=== PATIENT | female | born 1990 | race Caucasian/White ===

== ENCOUNTER → 2020-02-06 | Outpatient (CLI) | payer OTHER, SELFPAY ==
[2020-02-04 13:27] VITALS: BMI 19.3
--- NOTE | 2020-02-06 11:15 | US_ITS ---
STUDY: ULTRASOUND OF THE FEMALE PELVIS - COMPLETE REASON FOR EXAM: Female, 29 years old. OVARIAN CYST LMP: August 12, 2019. TECHNIQUE: Transabdominal and Transvaginal TECHNICAL QUALITY: Adequate. COMPARISON: None. FINDINGS: The uterus is anteverted and is in a midline position. The uterus measures 6 cm x 3.4 cm x 2.1 cm. Normal uterine cervix. The endometrium measures 2.5 mm in thickness, and is . There is no demonstrated endometrial mass. There is no demonstrated myometrial mass. I.U.D. - The patient does not have an I.U.D. The right ovary is visualized. The right ovary measures 2.5 cm x 2.4 cm x 2.2 cm. A dominant follicle is seen within the ovary measuring 1.5 cm x 1.8 cm x 1.5 cm. There is no visualized right adnexal mass or complex lesion. There is normal arterial and normal venous vascularity. The left ovary is visualized. The left ovary measures 2.2 cm x 1.5 cm x 1.8 cm. A dominant follicle is seen measuring 1.2 cm x 1.1 cm x 0.8 cm. There is no visualized left adnexal mass or complex lesion. There is normal arterial and normal venous vascularity. There is minimal fluid in the cul-de-sac. US/Pelvic (Non ) IMPRESSION: Dominant follicles are seen in both ovaries. Electronically Signed: Ludwig Bryson, at 13:02 EDT , Service support ,
--- NOTE | 2020-02-06 11:15 | US_ITS ---
STUDY: ULTRASOUND OF THE FEMALE PELVIS - COMPLETE REASON FOR EXAM: Female, 29 years old. OVARIAN CYST LMP: August 12, 2019. TECHNIQUE: Transabdominal and Transvaginal TECHNICAL QUALITY: Adequate. COMPARISON: None. FINDINGS: The uterus is anteverted and is in a midline position. The uterus measures 6 cm x 3.4 cm x 2.1 cm. Normal uterine cervix. The endometrium measures 2.5 mm in thickness, and is . There is no demonstrated endometrial mass. There is no demonstrated myometrial mass. I.U.D. - The patient does not have an I.U.D. The right ovary is visualized. The right ovary measures 2.5 cm x 2.4 cm x 2.2 cm. A dominant follicle is seen within the ovary measuring 1.5 cm x 1.8 cm x 1.5 cm. There is no visualized right adnexal mass or complex lesion. There is normal arterial and normal venous vascularity. The left ovary is visualized. The left ovary measures 2.2 cm x 1.5 cm x 1.8 cm. A dominant follicle is seen measuring 1.2 cm x 1.1 cm x 0.8 cm. There is no visualized left adnexal mass or complex lesion. There is normal arterial and normal venous vascularity. There is minimal fluid in the cul-de-sac. US/Transvaginal Non- IMPRESSION: Dominant follicles are seen in both ovaries. Electronically Signed: Ludwig Bryson, at 13:02 EDT , Service support ,
== END | disposition home or self-care (01) ==
LOC: US 11:15
PROVIDERS: Referring Provider Nurse Practitioner Women's Health; Visit Provider Nurse Practitioner Women's Health
DX: Z87.42 Personal history of other diseases of the female genital tract (principal)
CPT/HCPCS: 76830; 76856; 93976

== ENCOUNTER 2020-03-24 08:45 | Day surgery (SDC) | payer OTHER, SELFPAY ==
[2020-02-21 09:30] VITALS: BMI 19.3
[2020-03-12 11:07] VITALS: BMI 19.3
--- NOTE | 2020-03-24 06:34 | HP.PCM_ITS ---
- Problem List (1) Chronic pelvic pain in female Status: Chronic Comment: failed medical management. plan d and c hysteroscopy cystoscopy diagnostic laparoscopy chromotubation with CO2 laser available. 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: No Is patient in pain?: No Allergies No Known Allergies Allergy (Verified 03/12/20 11:06) Medications cwzghru-tsfpldoqpppbe-vnwjdvxi 250 mg-250 mg-65 mg tablet 1 tab PO ONCE 02/04/20 [History Confirmed 03/12/20] etonogestrel 68 mg subdermal implant 1 implant SUBDERMAL ONCE 02/04/20 [History Confirmed 03/12/20] naproxen 500 mg tablet 500 mg PO BID-TID PRN #60 tab 03/12/20 [Rx Confirmed 03/12/20] oxycodone-acetaminophen 5 mg-325 mg tablet 1 tab PO Q4H PRN #20 tab 03/12/20 [Rx Confirmed 03/12/20] Is last menstrual period known: No Post menopausal: No Patient : No : No PFSH Medical History Anxiety (Acute) Surgical History S/P tonsillectomy and adenoidectomy (Acute) Family History Mother Congestive heart failure Grandmother Cancer cervical- at 37 Uncle Heart disease Aunt Hypertension Grandfather Diabetes Brain tumor Social History (Updated 03/12/20 @ 11:[address] Amber Silva MD) Smoking Status: Never smoker alcohol intake: never substance use type: does not use caffeine: No what type of physical activity do you participate in: walking seatbelt use: always do you feel safe at home: Yes additional social history: Patient works for [employer] HPI Pre-op: Details: ANJALI TOMLIN is a 29 year old who presents for preop appointment for chronic pain. Female Reproductive History Menopausal Symptoms: No hot flashes, No night sweats, No difficulty concentrating, No change in libido Pregancy History 0 Elective abortions Hx Para Spontaneous abortions Hx # Term Pregnancies Ectopic pregnancies Hx # Pregnancies Multiple births # of living children ROS Const Constitutional: Denies fatigue, fever(s), headache(s), increased appetite, poor appetite, night sweats, weight gain or weight loss Cardio Card: Denies chest pain Resp Resp: Denies cough or dyspnea GI GI: Reports as per HPI and abdominal pain; denies constipation, nausea or vomiting : Reports as per HPI; denies difficulty urinating, painful urination, hot flashes, nipple discharge, urinary frequency, urinary incontinence, urinary hesitancy, urinary urgency, vaginal discharge, vaginal dryness, vaginal odor or vaginal itching Skin Skin/Breast: Denies nipple discharge Psych Psych: Denies change in sex drive or difficulty concentrating Exam Const General: cooperative, healthy appearing, comfortable, no acute distress, well developed Nutritional Appearance: average body habitus Orientation: alert HENMT Head: normal to inspection, normocephalic Neck Neck: normal visual inspection, trachea midline Thyroid: thyroid normal Resp Effort & Inspection: normal respiratory effort GI Inspection: normal to inspection, non-distended Palpation: soft, no hepatosplenomegaly General: bladder normal to palpation External Female Exam: normal external appearance, normal appearance of the urethra Urethra: normal appearance of the urethra Speculum Exam - Vagina: normal appearance of the vagina, normal vaginal discharge Speculum Exam - Cervix: normal appearance of the cervix, nontender Bimanual Exam- Vagina & Uterus: bladder normal to palpation, No cervical tenderness Bimanual Exam- Adnexa, other: normal adnexae, adnexae mobile, no adnexal masses, pelvic support normal, adnexal tenderness Pelvic Support: normal Skin General: no rashes or lesions noted Assessment & Plan Problems 1. Chronic pelvic pain in female R10.2; G89.29 failed medical management. plan d and c hysteroscopy cystoscopy diagnostic laparoscopy chromotubation with CO2 laser available. Plan After discussing the patient's diagnosis and treatment plan options, patient wishes to proceed with surgical management. I have discussed with the patient the risks, benefits, and alternatives of the procedure which include but are not limited to risks of anesthesia, bleeding, infection, possible damage to bowel, bladder, or surrounding vasculature which could lead to additional surgery to evaluate any complications. Patient agrees to procedure and wishes to proceed. ACOG/uptodate references given for additional information regarding procedure. Medications New: oxycodone-acetaminophen 5-325 mg (Percocet) 1 tab PO Q4H PRN 20 tabs 0RF pain naproxen administer with food or milk 500 mg PO BID-TID PRN 60 tabs 2RF pain Coding Level of Care Code No Charge Diagnoses Chronic pelvic pain in female R10.2; G89.29 UPDATE- I have seen the patient and performed any clinically relevant updates to the history and physical exam. Amber Silva MD
[2020-03-24 09:19] VITALS: BP 122/79; PULSE 91; RESP 16; TEMP 36.8; O2SAT 99; BMI 19.1
[2020-03-24 09:26] LABS: Internal QC Validated? YES +Cl - CLEAR BKGD; Pregnancy, Urine Negative Negative
[2020-03-24] MEDS: Lactated Ringers 1,000 ML 100 ML IV (09:33)
[2020-03-24 09:37] LABS: Hematocrit 41.4 % (37-47); Hemoglobin 14.1 g/dL (12.0-15.0); Mean Corp Hgb Conc 34.1 g/dL (32-36); Mean Corpuscular Hgb 30.1 pg (27.0-32.0); Mean Corpuscular Volume 88.3 fL (81-99); Platelet Count 332 K/mm3 (150-450); RBC Distribution Width CV 12.1 % (11.6-14.6); RBC Distribution Width SD 38.7 fl (35.1-43.9); Red Blood Count 4.69 M/mm3 (4.2-5.4); White Blood Count 8.2 K/mm3 (4.4-11.0)
[2020-03-24] MEDS: Cefazolin 2 GM in 0.9% Normal Saline 100 ML IV (10:52)
--- NOTE | 2020-03-24 11:07 | PCM.OPRPT ---
Problem List (1) Chronic pelvic pain in female Status: Chronic Comment: failed medical management. plan d and c hysteroscopy cystoscopy diagnostic laparoscopy chromotubation with CO2 laser available. Report of Operation Date of Procedure: 03/24/20 Pre-Operative Diagnosis: pelvic pain Post-Operative Diagnosis: same plus cervical stenosis Surgery/Procedure Performed:: diagnostic laparoscopy cystoscopy Description of Surgical Findings:: nl uterus tubes ovaries mild dilation of colon Type of Anesthesia:: General Special Medications: none Specimen's removed: none Drains: none Estimated Blood Loss (mL): none Fluids Replaced: crystalloid Description of Procedure: Taken to the operating room and placed under general anesthesia. Patient was prepped and draped in normal sterile fashion in the dorsolithotomy position. Bladder was drained of clear urine and the cervix was attempted to be dilated and sounded and had very severe cervical stenosis and was unable to enter and safely. Uterus was noted to be significantly small in mid position to mild anteverted. Attention was then paid to the abdomen and an umbilical injection with Marcaine and 5 mm incision was made varies needle entered into the abdomen confirmed the intra-abdominal with an opening pressure of 0 mmHg pressure. Abdomen was insufflated with gas and 5 mm scope placed under direct visualization. Entire pelvic structures and intra-abdominal structures were well visualized and uterus tubes and ovaries were noted to be within normal limits with no gross abnormality seen. No endometriosis implants seen and free mobility to the uterus confirmed. Chromotubation was unable to be performed but no significant abnormalities were suspected due to normal gross appearance. Appendix visualized and within normal limits as well as the upper abdomen gallbladder and stomach. The colon bilaterally may be a little dilated this is suspicion of some slow motility but this was a subjective assessment. Abdomen was desufflated gas and incision closed with 4-0 Monocryl. Cystoscopy was then performed after an attempt to enter into the uterus was performed and unsuccessful. Bladder was filled and over distended and no gross abnormalities trabeculations or petechiae were seen with good ureteral strong spray bilaterally. Bladder drained and refilled and no gross abnormalities were seen. All instruments removed from patient and patient was awoken and taken recovery in stable condition. Grafts/Implants Used: none - Complications none - Admit VTE Documentation VTE Present on Admission: No VTE Mechan Device Prophylaxis: SCD's Multi Select Codes - Urinary/Genital Urinary/Genital CPT Codes: 58225 Cystoscopy, Other Procedure See Report - [id number] diagnostic laparoscopy
--- NOTE | 2020-03-24 11:08 | PCM.DC.TUB ---
Discharge Diet: No Restrictions - Increase fluid intake for the next 48 hours. Discharge Activity: Return to Normal Activity, May Drive - when you are no longer taking narcotic pain medications., May Shower, May Take a Tub Bath - in 7 days Additional Activity Instructions:: Ambulate often the next week after surgery. Nothing in the vagina for 5 days. Call your doctor if your incision/area has: Continuous Slow Oozing, Sudden Increased Bleeding, Increased Pain/ Swelling, Increased Redness, Foul Smelling Discharge Call your doctor if you observe: Fever of 101 or Higher Allergies/Adverse Reactions: Allergies No Known Allergies Allergy (Verified 03/16/20 09:02) Medications to take at Discharge twqnhrf-pqllesazdqmqc-gdjwppas 250 mg-250 mg-65 mg tablet 1 tab PO ONCE PRN 02/04/20 etonogestrel 68 mg subdermal implant 1 implant SUBDERMAL ONCE 02/04/20 naproxen 500 mg tablet 500 mg PO BID-TID PRN #60 tab 03/12/20 oxycodone-acetaminophen 5 mg-325 mg tablet 1 tab PO Q4H PRN #20 tab 03/12/20 Naproxen [Naprosyn] 250 - 500 mg PO Q8H PRN PRN #30 tab 03/24/20 Oxycodone HCl/Acetaminophen [Percocet 5-325] 1 - 2 tablet PO Q6H PRN PRN 7 Days #15 tablet 03/24/20 The following prescriptions were given: Naproxen [Naprosyn] 250 - 500 mg PO Q8H PRN PRN #30 tab PRN Reason: MILD PAIN Transmission Status: Pending to [facility] Oxycodone HCl/Acetaminophen [Percocet 5-325] 1 - 2 tablet PO Q6H PRN PRN 7 Days #15 tablet PRN Reason: Pain Transmission Status: Sent to [facility] Primary Care Physician: Care Physician,No Primary [Primary Care Provider] - Test Results: Test results from this visit will be discussed in further detail at your follow-up appointment, if applicable. Please Follow Up With: Amber Silva MD - [phone]
[2020-03-24] MEDS: Bupivacaine 0.25% 30 ML Vial (11:18)
[2020-03-24 11:48] VITALS: BP 118/85; BP 122/79; PULSE 94; RESP 18; TEMP 36.6; O2SAT 100
[2020-03-24 12:00] VITALS: BP 109/78; BP 122/79; PULSE 92; RESP 16; O2SAT 99
[2020-03-24 12:15] VITALS: BP 109/80; BP 122/79; PULSE 84; RESP 16; O2SAT 100
[2020-03-24 12:30] VITALS: BP 106/74; BP 122/79; PULSE 72; RESP 16; TEMP 36.4; O2SAT 100
[2020-03-24] MEDS: HYDROcodone Bitartrate/Apap 5/325 Tablet PO (13:19)
[2020-03-24 14:20] VITALS: BP 122/79; BP 128/62; PULSE 70; RESP 16; TEMP 36.6; O2SAT 100
== END 2020-03-24 14:22 | disposition home or self-care (01) ==
LOC: SDC 08:46 → AC 08:48
PROVIDERS: Anesthesiology; Referring Provider Obstetrics & Gynecology; Visit Provider Obstetrics & Gynecology
PROC: 0UDB8ZZ Extraction of Endometrium, Via Natural or Artificial Opening Endoscopic (ICD-10-PCS; CPT 58558; principal; 2020-03-24 10:15)
PROC: (CPT 49320; 2020-03-24 10:15)
DX: N88.2 Stricture and stenosis of cervix uteri (principal); R10.2 Pelvic and perineal pain; G89.29 Other chronic pain; Z11.59 Encounter for screening for other viral diseases; Z79.891 Long term (current) use of opiate analgesic
CPT/HCPCS: 49320; 52000; 81025; 85027; 86850; 86900; 86901; 87635; 94799; J7120; J2405; Q9968; U0003

== ENCOUNTER → 2021-03-26 | Outpatient (CLI) | payer OTHER, SELFPAY ==
[2021-03-30 16:22] LABS: HPV Reflexed? NOT INDICATED
== END | disposition home or self-care (01) ==
LOC: LABSPEC 15:40
PROVIDERS: Visit Provider Obstetrics & Gynecology
DX: Z12.4 Encounter for screening for malignant neoplasm of cervix (principal)
CPT/HCPCS: 88175; G0145

== ENCOUNTER 2021-12-24 22:48 | Emergency (ER) | payer OTHER, SELFPAY ==
[2021-12-24 22:49] VITALS: BP 138/90; PULSE 95; RESP 16; TEMP 36.2; O2SAT 100; BMI 19.1
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
[2021-12-25] MEDS: Rabies Immune Globulin/PF 300 UNIT/ML, 1 ML VIAL 890 UNIT IM (00:11)
[2021-12-25] MEDS: Rabies Vaccine,Human Diploid 2.5 UNITS Vial IM (00:11)
[2021-12-25 00:29] VITALS: BP 124/76; PULSE 71; RESP 15; O2SAT 98
== END 2021-12-25 00:30 | disposition home or self-care (01) ==
PROVIDERS: Emergency Provider Emergency Medicine; Visit Provider Emergency Medicine
DX: S51.851A Open bite of right forearm, initial encounter (principal); W55.51XA Bitten by raccoon, initial encounter; Y93.89 Activity, other specified; Y99.0 Civilian activity done for income or pay; Y92.9 Unspecified place or not applicable; Z23 Encounter for immunization; F41.9 Anxiety disorder, unspecified; Z79.899 Other long term (current) drug therapy
CPT/HCPCS: 90375; 90675; 99283

== ENCOUNTER 2021-12-28 11:25 | Outpatient (CLI) | payer OTHER, SELFPAY ==
[2021-12-28 11:26] VITALS: BP 124/91; PULSE 87; RESP 14; O2SAT 99; BMI 19.1
[2021-12-28 11:28] VITALS: BP 124/91; PULSE 87; RESP 14; TEMP 36.9; O2SAT 99; BMI 19.1
[2021-12-28] MEDS: Rabies Vaccine,Human Diploid 2.5 UNITS Vial IM (11:58)
== END 2021-12-28 12:34 | disposition home or self-care (01) ==
PROVIDERS: Visit Provider Emergency Medicine
DX: Z23 Encounter for immunization (principal)
CPT/HCPCS: 90675; 96372

== ENCOUNTER 2022-01-01 10:28 | Outpatient (CLI) | payer OTHER, SELFPAY ==
[2022-01-01] MEDS: Rabies Vaccine,Human Diploid 2.5 UNITS Vial IM (10:59)
[2022-01-01 11:02] VITALS: BP 125/80; PULSE 74; RESP 16; TEMP 36; O2SAT 97; BMI 19.1
== END 2022-01-01 11:26 | disposition home or self-care (01) ==
LOC: ED 14:20
PROVIDERS: PCP Physician Assistant; Visit Provider Emergency Medicine
DX: Z23 Encounter for immunization (principal)
CPT/HCPCS: 90675; 96372

== ENCOUNTER 2022-01-08 11:12 | Outpatient (CLI) | payer OTHER, SELFPAY ==
[2022-01-08 11:13] VITALS: BP 114/85; PULSE 81; RESP 12; TEMP 36.6; O2SAT 97; BMI 19.1
[2022-01-08 11:16] VITALS: BP 114/85; PULSE 81; RESP 12; TEMP 36.6; O2SAT 97; BMI 19.1
[2022-01-08] MEDS: Rabies Vaccine,Human Diploid 2.5 UNITS Vial IM (11:50)
== END 2022-01-08 12:08 | disposition home or self-care (01) ==
LOC: ED 12:12
PROVIDERS: PCP Physician Assistant; Visit Provider Emergency Medicine
DX: Z23 Encounter for immunization (principal)
CPT/HCPCS: 90675; 96372

== ENCOUNTER 2024-07-10 21:15 | Emergency (ER) | payer OTHER, SELFPAY ==
[2024-07-10 21:16] VITALS: BP 126/90; PULSE 93; RESP 16; TEMP 36.2; O2SAT 100; BMI 20.5
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
--- NOTE | 2024-07-10 22:22 | CT_ITS ---
EXAM: CT CHEST, ABDOMEN AND PELVIS WITH INTRAVENOUS CONTRAST CLINICAL INDICATION: trauma TECHNIQUE: Helically acquired images were obtained of the chest, abdomen and pelvis with intravenous contrast. This CT exam was performed using one or more of the following dose reduction techniques: automated exposure control, adjustment of the mA and/or kV according to patient size, and/or use of iterative reconstruction technique. CONTRAST: IV 100mL Isovue-370 RADIATION DOSE: CTDIvol = 18.48 mGy, DLP = 2677.14 mGy-cm. COMPARISON: Ultrasound report from January 06, 2014. FINDINGS: CHEST: LUNGS AND PLEURAL SPACES: Unremarkable. No mass. No consolidation or edema. No pleural effusion or thickening. No pneumothorax. HEART: Unremarkable. Heart size is normal. No pericardial effusion. MEDIASTINUM: Unremarkable. No mediastinal or hilar adenopathy. Esophagus is unremarkable. No hiatal hernia. THYROID: Unremarkable. No thyroid lesions. ABDOMEN: LIVER: There is round densely and homogeneously enhancing presumed hemangioma in the left lobe of the liver, appears to be supplied by a small portal vein branch and measures roughly 1.4 cm x 1.5 cm. Not a typical appearance of hematoma or contusion. GALLBLADDER AND BILE DUCTS: Unremarkable. No calcified gallstones. No gallbladder distention or wall edema. No intra- or extrahepatic biliary ductal dilation. PANCREAS: Unremarkable. No focal cystic or solid mass. SPLEEN: Unremarkable. Normal size without focal cystic or solid mass. ADRENALS: Unremarkable. No nodules. KIDNEYS AND URETERS: Unremarkable. Normal renal size and position. No hydronephrosis. STOMACH AND BOWEL: Moderate gas and mild stool in much of the colon. Mild scattered small bowel content. No stomach or bowel distention. No focal inflammatory change. PELVIS: APPENDIX: Normal appendix is seen on sagittal images 109 through 125. BLADDER: Unremarkable. REPRODUCTIVE: Small dominant follicle in the left ovary, estimated to be 1.3 cm x 1.1 cm.. CHEST, ABDOMEN and PELVIS: INTRAPERITONEAL SPACE: Trace intrapelvic fluid. No free air. BONES/JOINTS: C7 level is not fully included, known left posterior C7 fractures on cervical spine CT. No suspicious lytic or blastic abnormality. SOFT TISSUES: Unremarkable. No discrete abdominal or pelvic wall hernia. VASCULATURE: See above. LYMPH NODES: Mild adenopathy in the root of the mesentery. CT/CT Chest, Abd, Pel w/Contrast IMPRESSION: 1. No specific acute posttraumatic abnormality. 2. Probable densely enhancing 1.5 cm hemangioma in the liver. No additional imaging is thought to be mandatory but ultrasound could be considered if thought to be indicated. 3. Trace intrapelvic fluid. 4. Suspicion of small dominant left ovarian follicle, not suspicious by size criteria. Electronically Signed: Beatris Veliz MD at 0:07 EST ,
[2024-07-10] MEDS: 0.9% Normal Saline (1000mL) 1,000 ML 1000 ML IV (22:31)
[2024-07-10 22:37] LABS: Absolute Lymphocyte Count 2.23 X10^3/uL (0.83-4.51); Absolute Neutrophil Count 16.2 X10^3/uL (2.0-7.7); Basophil# 0.06 X10^3/uL; Basophil% 0.3 % (0-1); Eosinophil# 0.03 X10^3/uL; Eosinophils% 0.2 % (0-5); Hematocrit 35.7 % (37-47); Hemoglobin 12.5 g/dL (12.0-15.0); Lymphocyte # 2.23 X10^3/ul (0.83-4.51); Lymphocyte % 11.4 % (19-41); Mean Corpuscular Volume 85.8 fL (81-99); Mean Platelet Vol. 8.5 fl (6.2-12.0); Monocyte# 0.84 X10^3/uL; Monocyte% 4.3 % (0-10); NRBC Flagged by Analyzer 0 % (0-5); Neutrophil # 16.23 X10^3/uL (2.7-7.7); Neutrophil % 83.3 % (47-70); Platelet Count 359 K/mm3 (150-450); RBC Distribution Width SD 37.5 fl (35.1-43.9); Red Blood Count 4.16 M/mm3 (4.2-5.4); White Blood Count 19.5 K/mm3 (4.4-11.0)
--- NOTE | 2024-07-10 22:37 | CT_ITS ---
EXAM: CT ANGIOGRAPHY HEAD AND NECK WITH INTRAVENOUS CONTRAST CLINICAL INDICATION: trauma , known left C7 lamina-facet fracture. TECHNIQUE: [place]/head and neck CT angiography protocol performed with intravenous contrast. This CT exam was performed using one or more of the following dose reduction techniques: automated exposure control, adjustment of the mA and/or kV according to patient size, and/or use of iterative reconstruction technique. MIP reconstructed images were created and reviewed. CONTRAST: IV 100mL Isovue-370 RADIATION DOSE: CTDIvol = 18.48 mGy, DLP = 2677.14 mGy-cm COMPARISON: No relevant prior studies available. FINDINGS: HEAD: RIGHT ANTERIOR CEREBRAL ARTERY: Unremarkable. No occlusion or significant stenosis. Anterior communicating artery is present. No aneurysm. RIGHT MIDDLE CEREBRAL ARTERY: Unremarkable. No occlusion or significant stenosis. No aneurysm. RIGHT POSTERIOR CEREBRAL ARTERY: Unremarkable. No occlusion or significant stenosis. No aneurysm. RIGHT INTRACRANIAL INTERNAL CAROTID ARTERY: Unremarkable. No significant stenosis. No dissection or occlusion. RIGHT INTRACRANIAL VERTEBRAL ARTERY: Unremarkable. No significant stenosis. No dissection or occlusion. LEFT ANTERIOR CEREBRAL ARTERY: Unremarkable. No occlusion or significant stenosis. No aneurysm. LEFT MIDDLE CEREBRAL ARTERY: Unremarkable. No occlusion or significant stenosis. No aneurysm. LEFT POSTERIOR CEREBRAL ARTERY: Unremarkable. No occlusion or significant stenosis. No aneurysm. LEFT INTRACRANIAL INTERNAL CAROTID ARTERY: Unremarkable. No significant stenosis. No dissection or occlusion. LEFT INTRACRANIAL VERTEBRAL ARTERY: Unremarkable. No significant stenosis. No dissection or occlusion. BASILAR ARTERY: Unremarkable. No occlusion or significant stenosis. No aneurysm. OTHER VASCULATURE: See below. Patent deep veins and dural venous sinuses. NECK: RIGHT COMMON CAROTID ARTERY: Unremarkable. No significant stenosis. No dissection or occlusion. RIGHT EXTRACRANIAL INTERNAL CAROTID ARTERY: Unremarkable. No significant stenosis. No dissection or occlusion. RIGHT EXTERNAL CAROTID ARTERY: Unremarkable. No occlusion. RIGHT EXTRACRANIAL VERTEBRAL ARTERY: Unremarkable. No significant stenosis. No dissection or occlusion. LEFT COMMON CAROTID ARTERY: Unremarkable. No significant stenosis. No dissection or occlusion. LEFT EXTRACRANIAL INTERNAL CAROTID ARTERY: Unremarkable. No significant stenosis. No dissection or occlusion. LEFT EXTERNAL CAROTID ARTERY: Unremarkable. No occlusion. LEFT EXTRACRANIAL VERTEBRAL ARTERY: The left vertebral artery enters the vertebral artery foramen at the level of C6. The vertebral arteries are symmetric. No evidence of dissection, eccentric narrowing, thrombosis or occlusion. ARCH, BRACHIOCEPHALIC AND SUBCLAVIAN ARTERIES: Unremarkable as visualized. No occlusion or significant stenosis. LUNG APICES: Unremarkable as visualized. There appears to be suspicion of mild residual thymus but concave anterior mediastinal margins around roughly 2.1 cm x 1.4 cm x 3 cm suspected residual findings. HEAD and NECK: BONES/JOINTS: V -shaped configuration of 2 adjacent fractures in the left C7 lamina and adjacent base of the facet are again noted, best seen on axials, with no significant facet joint widening or asymmetry. No other discrete lytic or blastic abnormalities. SOFT TISSUES: Right submandibular-submental lymph node anterior to the hyoid bone slightly to the right of midline, roughly 7 mm x 1 cm. Not particularly suspicious by size criteria. OTHER FINDINGS: No intraspinous hematoma or enhancement. CAROTID STENOSIS REFERENCE USING NASCET CRITERIA: % ICA stenosis = (1 - narrowest ICA diameter/diameter of distal cervical ICA) x 100. Mild - <50% stenosis. Moderate - 50-69% stenosis. Severe - 70-94% stenosis. Near occlusion - 95-99% stenosis. Occluded - 100% stenosis. CT/CTA Head AND Neck W/ Contrast IMPRESSION: No acute findings in the arteries of the head and neck. No evidence of vertebral artery injury. Left posterior-lateral C7 posterior column fractures again noted. The vertebral arteries enter the vertebral artery foramen at C6 bilaterally. Electronically Signed: Beatris Veliz MD at 0:18 EST ,
[2024-07-10] MEDS: Morphine 4 MG/ML Syringe IV (22:42)
[2024-07-10] MEDS: Ondansetron 4 MG/2 ML Vial IV (22:42)
[2024-07-10 22:47] LABS: Internal QC Validated? YES +Cl - CLEAR BKGD; Pregnancy, Serum, hCG Quali. NEGATIVE Negative
[2024-07-10 22:56] LABS: ALB/GLOB Ratio 1.2 RATIO (0.9-2.4); AST(SGOT) 12 U/L (15-37); Alanine Aminotransfer ALT/SGPT 15 U/L (13-56); Albumin, Serum 4.2 g/dL (3.2-5.0); Alkaline Phosphatase 61 U/L (45-117); Anion Gap 6 (5-15); BUN 15 mg/dL (7-18); BUN/Creat Ratio 20.7 RATIO (10-20); Calcium,Total 9.4 mg/dL (8.5-10.1); Chloride 108 mmol/L (98-107); Creatinine, Serum 0.72 mg/dL (0.55-1.02); EST Glomerular Filtration Rate 99 mL/min (>60); Est Glom Filt Rate - Afr Amer 119 mL/min (>60); Estimated Creatinine Clearance 80.57 ml/min; Globulin 3.4 g/dL (2.2-4.2); Glucose 108 mg/dL (74-106); Potassium 3.2 mmol/L (3.5-5.1); Protein, Total 7.6 g/dL (6.4-8.2); Sodium Level 140 mmol/L (136-145)
[2024-07-10 23:02] LABS: Alcohol, Blood (Medical)-Serum < 3.0 mg/dL
--- NOTE | 2024-07-10 23:30 | ED.RN ---
PT ACCEPTED AT [facility] T2 221. CALLED PHYSICIANS ETA 4 HRS FOR PRIORITY 1 TRANSFER
[2024-07-11 00:03] VITALS: BP 120/86; PULSE 93; RESP 18; TEMP 36.6; O2SAT 97
[2024-07-11] MEDS: Morphine 4 MG/ML Syringe IV (01:04)
== END 2024-07-11 01:15 | disposition other institution (70) ==
PROVIDERS: Emergency Provider Emergency Medicine; PCP Physician Assistant; Referring Provider Emergency Medicine; Visit Provider Emergency Medicine
DX: S12.601A Unspecified nondisplaced fracture of seventh cervical vertebra, initial encounter for closed fracture (principal); S83.92XA Sprain of unspecified site of left knee, initial encounter; S09.90XA Unspecified injury of head, initial encounter; V99.XXXA Unspecified transport accident, initial encounter; F41.9 Anxiety disorder, unspecified; Z79.899 Other long term (current) drug therapy
CPT/HCPCS: 70450; 70496; 70498; 71045; 71260; 72125; 73564; 74177; 80053; 82077; 84703; 85025; 96361; 96374; 96375; 96376; 99285; Q9967; A4216; J2405

== ENCOUNTER 2024-10-16 10:00 | Outpatient (RCR) | payer OTHER, SELFPAY ==
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
--- NOTE | 2024-10-21 11:39 | HP.PT.NRP ---
Patient Information Patient Information: LANCE TOMLIN was seen in my office for initial evaluation on 09/11/24. The following Plan of Care was established for this patient: POC Established Initial Frequency: 2-3x /Week Initial Duration: 4-6 Weeks Anticipated Interventions Patient/Client Instruction: Educate patient on: Condition and Plan of Care For the Purpose of:: To improve self management Therapeutic Exercise to Include: Strength training, Endurance training, Body mechanics, Postural training, Flexibilty training, Active ROM and Scapular Strength/Stabilization For the Purpose of:: To decrease pain, To increase ROM and To improve muscle performance and motor function Last Seen Last Seen: This patient was last seen in our office . Pertinent comments regarding their Physical therapy will appear below: Pt phoned the clinic today to report that she was discontinuing PT at this time as she needs to have surgery on her neck. At this point I will be discontinuing this patient from physical therapy. I would be happy to see this patient again in the future if found appropriate by the physician. Thank you! Morteza Beebe, PT, ATC Balance/Gait/Functional tests Balance/Special Test Scores Oswestry Neck Score: 18
== END 2024-10-16 19:00 | disposition home or self-care (01) ==
LOC: PT 10:00
PROVIDERS: PCP Physician Assistant; Referring Provider Orthopaedic Surgery Orthopaedic Surgery of the Spine; Visit Provider Orthopaedic Surgery Orthopaedic Surgery of the Spine
DX: S12.691D Other nondisplaced fracture of seventh cervical vertebra, subsequent encounter for fracture with routine healing (principal)
CPT/HCPCS: 97110; 97140; 97161

== ENCOUNTER → 2024-10-30 | Outpatient (CLI) | payer OTHER, SELFPAY ==
[2024-10-30 13:11] LABS: hCG Titer Quant., Serum 108 mIU/mL (<9 non-preg)
== END | disposition home or self-care (01) ==
PROVIDERS: PCP Physician Assistant; Referring Provider Nurse Practitioner Women's Health; Visit Provider Nurse Practitioner Women's Health
DX: N91.2 Amenorrhea, unspecified (principal)
CPT/HCPCS: 36415; 84702

== ENCOUNTER → 2024-11-01 | Outpatient (CLI) | payer OTHER, SELFPAY ==
[2024-11-05 13:08] LABS: HPV APTIMA, High Risk Negative (Negative)
== END | disposition home or self-care (01) ==
LOC: LABSPEC 10:33
PROVIDERS: PCP Physician Assistant; Referring Provider Nurse Practitioner Women's Health; Visit Provider Nurse Practitioner Women's Health
DX: Z12.4 Encounter for screening for malignant neoplasm of cervix (principal)
CPT/HCPCS: 87624; 88175; G0145

== ENCOUNTER → 2024-11-06 | Outpatient (CLI) | payer OTHER, SELFPAY ==
[2024-11-06 13:32] LABS: hCG Titer Quant., Serum 19 mIU/mL (<9 non-preg)
== END | disposition home or self-care (01) ==
PROVIDERS: PCP Physician Assistant; Referring Provider Nurse Practitioner Women's Health; Visit Provider Nurse Practitioner Women's Health
DX: O03.9 Complete or unspecified spontaneous abortion without complication (principal)
CPT/HCPCS: 36415; 84702

== ENCOUNTER → 2024-11-13 | Outpatient (CLI) | payer OTHER, SELFPAY ==
[2024-11-13 14:29] LABS: hCG Titer Quant., Serum 1 mIU/mL (<9 non-preg)
== END | disposition home or self-care (01) ==
LOC: BWCLAB 09:29
PROVIDERS: PCP Physician Assistant; Referring Provider Nurse Practitioner Women's Health; Visit Provider Nurse Practitioner Women's Health
DX: O03.9 Complete or unspecified spontaneous abortion without complication (principal)
CPT/HCPCS: 36415; 84702

== ENCOUNTER 2024-11-20 15:09 | Observation (INO) | payer OTHER, SELFPAY ==
--- NOTE | 2024-10-24 13:02 | EKG12_ITS ---
Test Reason : PREOP Blood Pressure : */* mmHG Vent. Rate : 85 BPM Atrial Rate : 85 BPM P-R Int : 108 ms QRS Dur : 70 ms QT Int : 354 ms P-R-T Axes : * 62 30 degrees QTcB Int : 421 ms Sinus rhythm with short [place] Otherwise normal ECG Confirmed by HEMANTH VERMA, RADHA ([id number]), editor sound CECY STEVENS ([id number]) on 10/24/2024 2:16:28 PM Referred By: Dmitriy Ortiz Confirmed By: RADHA SAXENA MD
[2024-10-24 13:14] LABS: Basophil# 0.05 X10^3/uL; Basophil% 0.6 % (0-1); Eosinophil# 0.06 X10^3/uL; Eosinophils% 0.7 % (0-5); Hematocrit 40.7 % (37-47); Hemoglobin 14.3 g/dL (12.0-15.0); Lymphocyte % 25.8 % (19-41); Mean Corp Hgb Conc 35.1 g/dL (32-36); Mean Corpuscular Hgb 30.2 pg (27.0-32.0); Mean Corpuscular Volume 85.9 fL (81-99); Mean Platelet Vol. 8.4 fl (6.2-12.0); Monocyte% 5.6 % (0-10); NRBC Flagged by Analyzer 0 % (0-5); Neutrophil # 5.98 X10^3/uL (2.7-7.7); Neutrophil % 67.1 % (47-70); Platelet Count 340 K/mm3 (150-450); RBC Distribution Width SD 37.9 fl (35.1-43.9); Red Blood Count 4.74 M/mm3 (4.2-5.4); White Blood Count 8.9 K/mm3 (4.4-11.0)
[2024-10-24 14:10] LABS: Magnesium 2.1 mg/dL (1.5-2.2)
[2024-10-24 14:17] LABS: Hepatitis B Surface Antibody Nonreactive; Hepatitis C Antibody Nonreactive (Nonreactive)
[2024-10-24 14:33] LABS: Anion Gap 14 (5-15); BUN 12 mg/dL (4-19); BUN/Creat Ratio 18.7 RATIO (10-20); Calcium,Total 9.7 mg/dL (7.6-11.0); Carbon Dioxide 21.8 mmol/L (21.0-32.0); Chloride 101 mmol/L (98-108); Creatinine, Serum 0.63 mg/dL (0.70-1.20); EST Glomerular Filtration Rate 121 (>60); Estimated Creatinine Clearance 92.08 ml/min (50-250); Glucose 108 mg/dL (70-99); HIV Nonreactive (Nonreactive); Potassium 3.9 mmol/L (3.3-5.1); Sodium Level 137 mmol/L (133-145)
--- NOTE | 2024-10-24 15:00 | PAT.ANESEVAL ---
Pre-Assessment Diagnosis/Proposed Procedure Planned Operative Procedure(s): ANTERIOR CERVICAL FUSION C3-4, C4-5 AND C5-6 Anesthesia History Anesthesia History - strategy analyst: Anesthesia History - strategy analyst Hx Hospitalization No 10/23/24 09:51 Any Problems With Anesthesia No 10/23/24 09:51 Cholinesterase deficiency No 10/23/24 09:51 You/Your Family Experience No 10/23/24 09:51 fever (hyperthermia) with Relationship Recent Exposure to Contagious No 03/16/20 09:04 Disease Does patient have nerve No 10/23/24 09:51 stimulator Patient instructed to have device shut off --Does patient have Pacemaker or ICD? When Was Last Pacemaker Check QUESTION #4 FULL TEXT: You/Your Family Experience fever (hyperthermia) with Anesthesia Last Oral Intake Last Oral intake: Last Oral Intake NPO since Meds taken in AM with sips of water? Meds patient instructed to take am of surgery PONV PONV - strategy analyst: PONV - strategy analyst Female Yes 10/23/24 09:51 HX of Motion Sickness Yes 10/23/24 09:51 HX of N/V After Surgery No 10/23/24 09:51 Non-Smoker Yes 10/23/24 09:51 Duration of Surgery greater Yes 10/23/24 09:51 than 60 minutes Number of Risk Factors 4 10/23/24 09:51 PONV Score Severe Risk 10/23/24 09:51 Height & Weight Height & Weight: Anesthesia: Height & Weight Height 5 ft 10/24/24 12:38 Weight: 47.627 kg 10/24/24 12:38 Respiratory Assessment Respiratory Assessment - strategy analyst: Respiratory Tract Infection Hx - strategy analyst Hx Respiratory Tract Infection No 10/23/24 09:51 STOP Sleep Apnea STOP Sleep Apnea - strategy analyst: STOP Sleep Apnea - strategy analyst Hx Hypertension No 10/23/24 09:51 Hx Sleep Apnea No 10/23/24 09:51 CPAP BIPAP Do you snore loudly (louder No 10/23/24 09:51 than talking or can be heard Do you often feel tired/ No 10/23/24 09:51 fatigued/ sleepy during daytime? Has anyone observed you stop No 10/23/24 09:51 breathing during sleep? STOP Results Negative 10/23/24 09:51 QUESTION #5 FULL TEXT : Do you snore loudly (louder than talking or can be heard through closed doors)? 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 Specify any problems Hx of Preganancy in last 3 N/A 10/23/24 09:51 Months Nurse Filling Out Transfusion [facility]BU[facility] 10/23/24 09:51 & Questions: Date: 10/23/24 10/23/24 09:51 Time: 09:52 10/23/24 09:51 Patient unable to answer at this time (ie. confused, unrespo /Reproduction History /Reproductive History - strategy analyst: /Reproductive Hx- strategy analyst Hx Now No 10/23/24 09:51 Gestational Age (in weeks): EDC: Hx Hx Para Hx Section SAB No 10/23/24 09:51 Active Medications Active Medications: Current Medications Generic Name Dose Route Start Last Admin Trade Name Freq PRN Reason Stop Dose Admin Acetaminophen 1,000 mg 10/25/24 13:00 Acetaminophen 500 Mg Tablet PO 10/25/24 13:01 X1 ONE Dexamethasone Sodium Phosphate 8 mg 10/25/24 13:00 Dexamethasone 10 Mg/Ml Vial IV 10/25/24 13:01 X1 ONE Dexamethasone Sodium Phosphate 4 mg 10/25/24 13:00 Dexamethasone 4 Mg/Ml Vial IV 10/25/24 13:01 X1 ONE Cefazolin Sodium 2 gm/ N/A 20 mls @ 400 mls/hr 10/25/24 13:00 IV 10/25/24 13:02 PREOP ONE Tranexamic Acid 1,000 mg/ 110 mls @ 440 mls/hr 10/25/24 13:00 Sodium Chloride IV 10/25/24 13:14 X1 ONE Tranexamic Acid 1,000 mg/ 110 mls @ 440 mls/hr 10/25/24 13:00 Sodium Chloride IV 10/25/24 13:14 X1 ONE Insulin Human Lispro 1 - 6 unit 10/25/24 13:00 Insulin Lispro 100 Unit/Ml Insuln.Pen SC Q4H PRN PRN BG>/= 180, SEE PROTOCOL Protocol PFSH Medical History (Updated 10/23/24 @ 09:56 by Gardenia Rivero) Wears contact lenses Restless legs Migraine headache Non-smoker Anxiety Home Medications ?Medication ?Instructions ?Recorded ?Last Taken ?Type sertraline 100 mg tablet (Zoloft) 100 mg PO DAILY #30 tabs 03/26/21 Unknown Rx methocarbamol 500 mg tablet 500 mg PO TID PRN pain/spasms #30 10/21/24 Unknown Rx tabs Allergy/AdvReac Type Severity Reaction Status Date / Time bee venom protein (honey bee) Allergy Other Verified 10/24/24 14:36 Family History Mother Congestive heart failure Grandmother Cancer cervical- at 37 Uncle Heart disease Aunt Hypertension Grandfather Diabetes Brain tumor Surgical History H/O laparoscopy H/O cystoscopy S/P tonsillectomy and adenoidectomy Social History Smoking Status: Never smoker Smokeless tobacco user: snuff alcohol intake: current details: social substance use type: does not use caffeine: No what type of physical activity do you participate in: walking seatbelt use: always do you feel safe at home: Yes additional social history: Patient works for [employer] Dept Audit: Pertinent Findings Pertinent Findings EKG Perinent findings: October 24, 2024. Sinus rhythm with short GA interval. Recommendation Anesthesia Recommendation Anesthesia recommendation: OPTIMIZED for anesthesia
[2024-10-25 10:56] VITALS: BP 113/76; PULSE 85; RESP 16; TEMP 37.3; O2SAT 100; BMI 20.6
[2024-10-25 10:58] LABS: Internal QC Validated? YES +Cl - CLEAR BKGD
[2024-10-25 11:02] LABS: Pregnancy, Urine Positive Negative
[2024-10-25] MEDS: 0.9% Normal Saline (1000mL) 1,000 ML 15 ML IV (11:27)
[2024-10-25 11:45] LABS: Bedside Glucose 83 mg/dL (74-106)
[2024-10-25 12:03] LABS: hCG Titer Quant., Serum 159 mIU/mL (<9 non-preg)
[2024-10-26 05:07] LABS: Hepatitis A AB, Total Negative (Negative)
[2024-11-20] VITALS (15 sets, daily range): BP systolic 93–137; BP diastolic 62–99; PULSE 85–117; RESP 14–24; TEMP 36.3–37.3; O2SAT 98–100; BMI 20.6
--- NOTE | 2024-11-20 09:42 | PCM.PRE.AN2 ---
ASA Classification* ASA Classification ASA Classification: 2 Assessment & Plan Anesthesia* Anesthesia Assessment Anesthesia Assessment: Discussed sedation and/or anesthesia options, risks, benefits, and alternatives with patient/parents/legal guardian/POA. Questions invited. The patient/parents/legal guardian/POA seems to understand and agrees to proceed with anesthesia plan. Reviewed the physical assessment, medical history, allergy history and patient home medications list prior to surgery/procedure/anesthetic and documented any changes. Performed airway and anesthesia risk assessments. Anesthesia Type Anesthesia Type: General Anesthesia Focused Assessment* Temperature: 99.1 F Pulse Rate: 85 Blood Pressure: 113/76 Respiratory Rate: 16 Pulse Ox: 100 Airway Assessment Mouth opens: >3 cm Mallampati Score: II Focused Labs Anesthesia Preop lab: CBC WBC 8.9 K/mm3 (4.4-11.0) 10/24/24 12:52 10/24/24 RBC 4.74 M/mm3 (4.2-5.4) 10/24/24 12:52 10/24/24 Hgb 14.3 g/dL (12.0-15.0) 10/24/24 12:52 10/24/24 Hct 40.7 % (37-47) 10/24/24 12:52 10/24/24 Plt Count 340 K/mm3 (150-450) 10/24/24 12:52 10/24/24 CHEMISTRY Potassium 3.9 mmol/L (3.3-5.1) 10/24/24 12:52 10/24/24 Sodium 137 mmol/L (133-145) 10/24/24 12:52 10/24/24 Magnesium 2.1 mg/dL (1.5-2.2) 10/24/24 12:51 10/24/24 BUN 12 mg/dL (4-19) 10/24/24 12:52 10/24/24 Creatinine 0.63 mg/dL (0.70-1.20) L 10/24/24 12:52 10/24/24 Glucose 108 mg/dL (70-99) H 10/24/24 12:52 10/24/24 POC Glucose 83 mg/dL (74-106) 10/25/24 11:19 10/25/24 COAG HCG, Quant 1 mIU/mL (<9 non-preg) 11/13/24 09:30 11/13/24 Urine Test Positive Negative H 10/25/24 10:45 10/25/24 Pre-Assessment Diagnosis/Proposed Procedure Planned Operative Procedure(s): ANTERIOR CERVICAL FUSION C3-4, C4-5 AND C5-6 Anesthesia History Anesthesia History - psychological aide: Anesthesia History - psychological aide Hx Hospitalization No 10/30/24 13:42 Any Problems With Anesthesia No 10/30/24 13:42 Cholinesterase deficiency No 10/30/24 13:42 You/Your Family Experience No 10/30/24 13:42 fever (hyperthermia) with Relationship Recent Exposure to Contagious No 10/30/24 13:42 Disease Does patient have nerve No 10/30/24 13:42 stimulator Patient instructed to have device shut off --Does patient have Pacemaker No 10/25/24 10:56 or ICD? When Was Last Pacemaker Check QUESTION #4 FULL TEXT: You/Your Family Experience fever (hyperthermia) with Anesthesia Last Oral Intake Last Oral intake: Last Oral Intake NPO since :10/25/24 10:56 Meds taken in AM with sips of No 10/25/24 10:56 water? Meds patient instructed to take am of surgery PONV PONV - psychological aide: PONV - psychological aide Female Yes 10/23/24 09:51 HX of Motion Sickness Yes 10/23/24 09:51 HX of N/V After Surgery No 10/23/24 09:51 Non-Smoker Yes 10/23/24 09:51 Duration of Surgery greater Yes 10/23/24 09:51 than 60 minutes Number of Risk Factors 4 10/23/24 09:51 PONV Score Severe Risk 10/23/24 09:51 Height & Weight Height & Weight: Anesthesia: Height & Weight Height 5 ft 11/01/24 09:09 Weight: 49.361 kg 11/19/24 08:40 Body Mass Index (BMI) 20.6 10/25/24 10:56 Respiratory Assessment Respiratory Assessment - psychological aide: Respiratory Tract Infection Hx - psychological aide Hx Respiratory Tract Infection No 10/30/24 13:42 STOP Sleep Apnea STOP Sleep Apnea - psychological aide: STOP Sleep Apnea - psychological aide Hx Hypertension No 10/30/24 13:42 Hx Sleep Apnea No 10/30/24 13:42 CPAP BIPAP Do you snore loudly (louder No 10/23/24 09:51 than talking or can be heard Do you often feel tired/ No 10/23/24 09:51 fatigued/ sleepy during daytime? Has anyone observed you stop No 10/23/24 09:51 breathing during sleep? STOP Results Negative 10/23/24 09:51 QUESTION #5 FULL TEXT : Do you snore loudly (louder than talking or can be heard through closed doors)? 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 Specify any problems Hx of Preganancy in last 3 N/A 10/23/24 09:51 Months Nurse Filling Out Transfusion [facility] 10/23/24 09:51 & Questions: Date: 10/23/24 10/23/24 09:51 Time: 09:52 10/23/24 09:51 Patient unable to answer at this time (ie. confused, unrespo /Reproduction History /Reproductive History - psychological aide: /Reproductive Hx- psychological aide Hx Now No 10/23/24 09:51 Gestational Age (in weeks): EDC: Hx Hx Para Hx Section SAB No 11/01/24 09:09 Active Medications Active Medications: Current Medications Generic Name Dose Route Start Last Admin Trade Name Freq PRN Reason Stop Dose Admin Acetaminophen 1,000 mg 11/20/24 12:30 Acetaminophen 500 Mg Tablet PO 11/20/24 12:31 X1 ONE Dexamethasone Sodium Phosphate 8 mg 11/20/24 12:30 Dexamethasone 10 Mg/Ml Vial IV 11/20/24 12:31 X1 ONE Dexamethasone Sodium Phosphate 4 mg 11/20/24 18:30 Dexamethasone 4 Mg/Ml Vial IV 11/20/24 18:31 X1 ONE Cefazolin Sodium 2 gm/ N/A 20 mls @ 400 mls/hr 11/20/24 12:30 IV 11/20/24 12:32 PREOP ONE Tranexamic Acid 1,000 mg/ 110 mls @ 440 mls/hr 11/20/24 12:30 Sodium Chloride IV 11/20/24 12:44 X1 ONE Tranexamic Acid 1,000 mg/ 110 mls @ 440 mls/hr 11/20/24 12:30 Sodium Chloride IV 11/20/24 12:44 X1 ONE Magnesium Sulfate 1 gm/ 102 mls @ 408 mls/hr 11/20/24 12:30 Dextrose IV 11/20/24 12:44 X1 ONE Insulin Human Lispro 1 - 6 unit 11/20/24 12:30 Insulin Lispro 100 Unit/Ml Insuln.Pen SC Q4H PRN PRN BG>/= 180, SEE PROTOCOL Protocol PFSH Medical History Wears contact lenses Restless legs Migraine headache Non-smoker Anxiety Home Medications ?Medication ?Instructions ?Recorded ?Last Taken ?Type sertraline 100 mg tablet (Zoloft) 100 mg PO DAILY #30 tabs 03/26/21 10/24/24 21:30 Rx methocarbamol 500 mg tablet 500 mg PO TID PRN pain/spasms #30 10/21/24 10/24/24 Rx tabs Allergy/AdvReac Type Severity Reaction Status Date / Time bee venom protein (honey bee) Allergy Other Verified 11/07/24 10:01 Family History Mother Congestive heart failure Grandmother Cancer cervical- at 37 Uncle Heart disease Aunt Hypertension Grandfather Diabetes Brain tumor Surgical History H/O laparoscopy H/O cystoscopy S/P tonsillectomy and adenoidectomy Social History Smoking Status: Never smoker Smokeless tobacco user: snuff alcohol intake: current details: social substance use type: does not use caffeine: No what type of physical activity do you participate in: walking seatbelt use: always do you feel safe at home: Yes additional social history: Patient works for [employer] Review of Systems (Anesthesia) ROS Narrative System reviewed and no additional complaints, except as documented.
[2024-11-20 10:24] LABS: Internal QC Validated? YES +Cl - CLEAR BKGD; Pregnancy, Urine Negative Negative
[2024-11-20] MEDS: 0.9% Normal Saline (1000mL) 1,000 ML 15 ML IV ×2 (10:35→16:21)
[2024-11-20] MEDS: Magnesium 1 GM over 15 mins IV (10:35)
[2024-11-20] MEDS: Acetaminophen 500 MG Tablet 1000 MG PO (10:36)
--- NOTE | 2024-11-20 11:00 | RAD_ITS ---
PROCEDURE: CERV SPINE 2 OR 3 VIEWS 11/20/2024 REASON FOR EXAM: ANTERIOR FUSION C3-4,C4-5, AND C5-6 TECHNIQUE: 9 intraoperative fluoroscopic images of the cervical spine. COMPARISON: 10/07/2024 FINDINGS: X2-5-N3-5-C5-6 anterior cervical fusion appears aligned. RAD/Cerv Spine 2 or 3 Views IMPRESSION: Uncomplicated intraoperative images of C3-C6 anterior fusion. Reading Location: [facility]
[2024-11-20 11:03] LABS: Bedside Glucose 86 mg/dL (74-106)
--- NOTE | 2024-11-20 11:18 | PCM.HP.BLA ---
History and Physical Date of Admission: 11/20/24 MR#: [id number] Acct: [id number] Name: LANCE LOCKHART Rep #: [id number] : 1990 Provider: Dr. Dmitriy Ortiz MD Age/Sex: 34/F Location: [facility] [place] Status: Signed Intake Vital Signs 11/01/2508:09 Height 5 ft Intake Visit Reasons: CERVICAL SPINE Allergies bee venom protein (honey bee) Allergy (Verified 11/07/24 10:01) Other Medications ?Medication ?Instructions ?Recorded ?Confirmed ?Type sertraline 100 mg tablet (Zoloft) 100 mg PO DAILY #30 tabs 03/26/21 11/07/24 Rx methocarbamol 500 mg tablet 500 mg PO TID PRN pain/spasms #30 10/21/24 11/07/24 Rx tabs PFSH Medical History Wears contact lenses Restless legs Migraine headache Non-smoker Anxiety Surgical History H/O laparoscopy H/O cystoscopy S/P tonsillectomy and adenoidectomy Family History Mother Congestive heart failureGrandmother Cancer cervical- at [address] [place] [address] Heart diseaseAunt HypertensionGrandfather Diabetes Brain tumor Social History Smoking Status: Never smoker Smokeless tobacco user: snuff alcohol intake: current details: social substance use type: does not use caffeine: No what type of physical activity do you participate in: walking seatbelt use: always do you feel safe at home: Yes additional social history: Patient works for [employer] Dept HPI CERVICAL SPINE Details: This documentation accurately reflects the service provided and the decisions made by me, Dr. Dmitriy Ortiz MD 11/07/24 0953. Part of today?s visit was documented by Charlee ALVAREZ, acting as scribe. LANCE LOCKHART is a 34 year old F here today for follow-up after seeing [facility]. She states that when she saw them they told her that their was no big issue after being there for 6 hours then they sent her home. She would still like to proceed with surgery. Patient notes that she is also no longer . Patient did speak with her OB and they informed her that her levels are declining and she is almost to 0 and she definitely miscarried. Patient was scheduled for ACDF C3-6 on October 25, but found out that she was in the preop area. Due to the the concern from CURING PRESS OPERATOR, it was thought to cancel the surgery on that date and go ahead with the CURING PRESS OPERATOR consultation. Because of the severity of the cord compression, I did give her an option to go to a tertiary center to be able to get the cervical spine surgery with better resources and [id number] CURING PRESS OPERATOR availability if needed. Unfortunately she seems to have miscarried. She wishes to proceed with surgery here in [facility]. She continues to have significant neck pain with bilateral upper extremity numbness and weakness and difficulty with balance which continue to bother her. She denies any falls since last seen by us. 10/21/24: LANCE TOMLIN is a 33 year old F here today for cervical spine MRI review. Patient states she is starting to get numbness/tingling down into the legs. She states she actually fell over due to this being so bad. She states it is almost as if the legs weren't working. She states the pain, numbness and tingling in the arms are getting worse as well. She states it feels like she has no control with anything. She complains of dexterity issues and has starting dropping things from her hands. Says that she has noticed weakness and pain in her bilateral arms. Says that the pain starts at her shoulders and extends down the back of her arms to the back of her hands and fingers. Says that this is equal on both sides however on occasion it will worsen to 1 side or the other but not consistently and will go to both sides equally. Over the last couple of weeks this seems to have worsened. She has tried Ibuprofen for the pain and states she did not get any relief with it. Pain, numbness, and tingling goes into both arms. Losing dexterity and is dropping things out of her hands such as cups and utensils. She has lost balance and has had a fall over this time. Over the last couple of weeks it is worsening. No diabetes, no heart or lung issues, no blood thinners. 10/07/2024: LACNE TOMLIN is a 33 year old F here today for f/u on her cervical spine. She is now 3 months out from her initial visit. She states that she is still having the pain at the base of her neck but is unsure if it is a muscular pain or bone pain. She denies taking anything for pain. She is still in PT which is going well. She is no longer have the headaches. Says that she has one more physical therapy session. Says that she gets numbness and tingling into her bilateral hands that extends to her elbows. Denies any biceps or triceps pain. Denies any balance or dexterity issues. 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 Normal sensation across all dermatomes. No midline or paraspinal tenderness. The patient appeared very uncomfortable on exam, constantly moving and rubbing her arms and hands. Bilateral brisk knee reflex. Romberg's was positive. Single leg stand showed relatively normal balance. Kobi's negative. Coding Level of Care Code Off vis,est,level 4 Diagnoses Cervical myelopathy with cervical radiculopathy G95.9; M54.12 Time Spent (min) 35 Assessment and Plan Assessment and Plan (1) Cervical myelopathy with cervical radiculopathy: Status: Acute Orders: Orders Spine Cervical WITH Contrast Today Q06.9 - Congenital malformation of spinal cord, unspecified Plan Again reviewed MRI from October 17, 2024 which showed C3-4 broad-based disc bulge with partial compression of the ventral cord there is also a rounded focus of increased signal at this C3-4 level without cord expansion which may represent cord contusion. C4-5 broad-based disc bulge with partial compression of the ventral cord, C5-6 broad-based disc bulge. Reviewed prior x-rays from October 07, 2024 which showed straightening of the normal cervical lordosis with no significant degeneration. Again explained imaging findings in detail. At this time due to the patient's worsening strength, dexterity issues, balance issues discussed surgical treatment which would be a C3-6 ACDF. Discussed the natural history of cervical myelopathy which is progressive. Explained the procedure in detail and reviewed risks and benefits of the surgery. Risks of the surgery include but are not limited to bleeding, infection, dysphagia, hardware failure, pseudoarthrosis, adjacent segment degeneration, pneumonia, DVT, pulmonary embolism, atelectasis, persistent pain, chance for future surgeries. Discussed the wear schedule for the cervical collar after surgery. Discussed postsurgical restrictions such as no bending, lifting, twisting until 3 months postop. Patient understands and agrees to proceed with surgery. Spoke to patient that we will plan to proceed with surgery but we will need a clearance from her OB prior to proceeding with surgery to make sure she does not need any surgical procedure following the miscarriage. We will order a MRI with contrast for the patient to obtain prior to proceeding with surgery to re-evaluate further. Her myelomalacia seems to be fairly well-defined which may lead to suspicion of lesion such as multiple sclerosis. We will order this as stat so she can get it done and proceed with surgery hopefully in the next 2 weeks. Follow up for surgery once it is scheduled or sooner if pain, swelling, numbness or associated symptoms, or concerns develop. All questions answered. Patient in agreement of plan.
[2024-11-20] MEDS: Cefazolin 2 GM in Syringe 10 ML IV ×2 (12:05→20:57)
[2024-11-20] MEDS: dexAMETHasone 10 MG/ML Vial 8 MG IV (12:19)
[2024-11-20] MEDS: TRANEXAMIC ACID 1,000 MG in 0.9% Normal Saline (100mL Bag) 100 ML 440 MG IV ×2 (12:20→14:41)
--- NOTE | 2024-11-20 15:11 | PCM.OPRPT ---
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, stenosis, radiculomyelopathy Post-Operative Diagnosis: Same Surgery/Procedure Performed: C3-6 ACDF records assistant: Yes Member Of [employer] Legislative [employer]: Michelle Santamaria Tasks completed by senior assistant manager: Closing, Removing tissue, Implanting device, Hemostasis: Electrocautery and Retracting Type of Anesthesia: General RN Documented Start/Stop Times: Operation Date: 11/20/24 12:00 Case Time Into Pre-Op 11/20/24 10:05 Anesthesia Start 11/20/24 11:57 Into Room 11/20/24 11:57 Out of Pre-Op 11/20/24 12:00 Procedure Start 11/20/24 12:22 Procedure End 11/20/24 15:01 Anesthesia End 11/20/24 15:08 Out of Room 11/20/24 15:08 Procedure Start Time: 12:22 Procedure Stop Time: 15:01 Select all DRAINS/GRAFTS/IMPLANTS that apply: Drains Drain details: Joey , Graft Graft details: Structural allograft cortical cancellous strut and Implanted device Implanted device details: Medtronic Corralitos Elite plate instrumentation Estimated Blood Loss: 30 cc Specimen collected: No Description of surgery: Preoperative diagnosis: C3-6 disc degeneration with stenosis, radiculomyelopathy Postoperative diagnosis: Same Name of procedure: C3-6 anterior cervical discectomy and fusion with plate instrumentation - Anterior cervical fusion C3-4, CPT code 82382 - Anterior plate instrumentation C3-6, CPT code 31002/59 - Anterior cervical fusion C4-5, CPT code 58953/51 - Anterior cervical fusion C5-6, CPT code 84726/51 - C3-4 structural allograft bone with DBX, CPT code 16499 - C4-5 structural allograft bone with DBX, CPT code 91500 - C5-6 structural allograft bone with DBX, CPT code 82062 Attending surgeon: Dmitriy Ortiz M.D. Anesthesia: Gen. endotracheal Estimated blood loss: 30 mL Complications: None Instrumentation used: Medtronic Corralitos Elite plate, LASR corticocancellous block Indications: The patient is a pleasant 34-year-old lady who presented with upper extremity radicular numbness with weakness, progressive balance issues. MRI showed C3-6 disc degeneration with stenosis with cord compression with myelomalacia. In order to halt the progression of myelopathy, the patient requested surgical treatment. All risks and benefits of the procedure were explained to the patient. The risks include but are not limited to infection, bleeding, injury to nerves and vessels, vertebral artery injury, spinal cord injury, paralysis, vocal cord paralysis, injury to esophagus, pseudoarthrosis, need for further procedures, adjacent segment degeneration. Procedure: The patient was identified in the preoperative suite using unique patient identifiers. Skin was marked consent was taken and all questions were answered. The patient was then brought back to the operative room and a timeout was performed. General endotracheal anesthesia was given. Intraoperative neuro monitoring leads were applied. The patient was carefully positioned supine on a regular OR table. A lateral view with a C-arm was done to identify the level and to define the incision. The anterior neck was then prepped and draped in the usual fashion. A final timeout was then performed. A transverse skin incision was taken to the left of midline. Subcutaneous tissue was then divided with Bovie. Platysma was identified and cut along the incision with scissors. The fascial interval between the sternocleidomastoid and the larynx was developed. Omohyoid was identified and retracted. The esophagus with the larynx was retracted medially to reach the prevertebral fascia. Marker x-ray was performed with bent spinal needle and disc space and levels were confirmed. Longus coli muscle was elevated on both sides at and above and below C3-6 discs. Self-retaining retractors were then placed. A long handle knife was then used to perform annulotomy at C4-5. Disc fragments were removed with the pituitary. Ludlow pins were placed in C4 and C5 for disc distraction. Curettes and bur was utilized to remove cartilage from the endplates. Discectomy was performed laterally up to the uncovertebral joints. Posterior osteophytes were thinned down with the bur and adequate decompression in the central and foraminal areas were performed and PLL was thinned out. Once the disc space was prepared, trials of various sizes were utilized. Thorough irrigation was given. 6 mm LASR cortical cancellous allograft bone large footprint was then fashioned in such a way that concavities were burred out inferiorly and superiorly and half cc of DBX (demineralized bone matrix) was squeezed into the cancellous portion. The graft was then inserted into the C4-5 disc space. The retractors were then repositioned and the procedure was repeated for C3-4 and C5-6 discs with complete discectomy. Graft sizes were 6 mm at with large footprint at C3-4 and C5-6. The grafts were found to be in good apposition with good pullout strength. A 55 mm Medtronic Corralitos Elite plate was then fixed to C3-6 with 14 mm screws. A lateral x-ray was then taken to check the length of the screws. Both AP and lateral x-rays showed good positioning of plate and screws. The locking mechanism over the screw heads was then turned. Thorough irrigation was again given. Hemostasis was achieved. A Joey drain was then inserted. Closure was done with 3-0 Vicryl for the platysma and subcutaneous tissue layers and 4-0 Monocryl for the skin. Closure was done around the drain. Steri-Strips were applied and dressing was done with 4 x 4 gauze and Tegaderm. A cervical collar was then applied. The patient was then woken up from anesthesia extubated and taken to PACU in stable condition. From here, the patient will be transitioned to the floor. Intraoperative neuro monitoring was performed throughout this procedure. Motor evoked potentials were run periodically. All potentials remained at baseline throughout the procedure. I was present for the entire surgery and performed the surgery myself. Grinder Set Up Operator Gear Tool Michelle Santamaria PA-C. My physician credit assistant was a vital part of this case. They were important in appropriate retraction during the case, and protection of soft tissues during the procedure. Their intimate knowledge of the case and my steps aided in safe and expedient completion of the procedure as well as appropriate position of the patient during the surgery. They were also vital in assisting with closure under my direct supervision. Surgical Findings: See operative note Complications Complications: No
--- NOTE | 2024-11-20 15:20 | PCM.POST.ANE ---
Anesthesia: Postop Eval I Current Vital Signs Temperature: 97.5 F Pulse Rate: 102 Blood Pressure: 137/94 Respiratory Rate: 16 Pulse Ox: 100 Oxygen Delivery Method: Room Air Assessment Airway patent: Yes Spontaneous unlabored respirations: Yes Mental status: Awake and Calm nausea: No Vomiting: No Anesthesia Complication: No Fluid Hydration Crystalloid volume administer (ml): 1,150 Total IV fluid infused: 1,150 Progress Note Anesthesia document: Postop Eval 1 completed: Yes
--- NOTE | 2024-11-20 15:46 | PN.HOSP_ITS ---
Reason for Visit Reason for Visit: Diagnoses Encounter for other preprocedural examination (11/20/24) Subjective Subjective The patient is a 34 y/o F w/ PMHx: RLS, Anxiety and Depression, Chronic migraines, Chronic tobacco snuff usage, Chronic neck pain with C3-6 disc degeneration, stenosis, radiculomyelopathy who presents to the [facility] on 11/20/2024 secondary to persistent neck discomfort and pain for planned C3-[address] Ortiz. In the PACU patient is in extreme pain noting severe 10 out of 10 neck pain, constant, throbbing and has had several pain regimen as well as anxiolytics. She has been in severe anxiety while in the PACU per discussion with staff and patient herself. She is on Zoloft and in the past remotely had been on Xanax but has not had this for at least 2 years and is not currently prescribed. Patient denies fevers, chills, nausea, emesis, abdominal pain, chest pain or dyspnea. Objective Data Objective Data Vital Signs: Vital Signs Temp Pulse Resp BP Pulse Ox O2 Del Method 97.5 F L 102 H 16 137/94 H 100 Room Air 11/20/24 15:21 11/20/24 15:21 11/20/24 15:21 11/20/24 15:21 11/20/24 15:21 11/20/24 15:21 Oxygen Delivery Method Room Air Weight: 105 lb 13.15 oz Body Mass Index (BMI) 20.6 Intake & Output: Intake and Output for Last 24 Hours 11/18/24 11/19/24 11/20/24 23:59 23:59 23:59 Intake Total 240 / 240 Balance 240 / 240 Lab / Micro Data 10/24/24 12:52 10/24/24 12:52 Labs: Laboratory Results - last 24 hr 11/20/24 10:10: Urine Test Negative 11/20/24 10:15: Blood Type A POSITIVE, Antibody Screen NEGATIVE 11/20/24 10:33: POC Glucose 86 Micro: Microbiology 10/24/24 12:52 Swab (Method) Nasal Screen MRSA/MSSA - Final Radiography Diagnostic Testing: Radiology Impression Cervical Spine X-Ray 11/20/24 11:00 IMPRESSION: Uncomplicated intraoperative images of C3-C6 anterior fusion. Reading Location: [facility] Physical Exam Narrative Physical Examination: General: Awake, alert, oriented x 3 and cooperative, seated upright in the PACU bed, extremely distressed, reporting pain to the neck but also extremely anxious and tearful. Skin: Normal color, normal turgor, no icterus, no cyanosis except for recent OR with neck brace in place with anterior dressing noted with no severe drainage. HEENT: AT aside from neck changes as noted on skin/NC, EOMI, PERRLA, mildly dry MM. Lungs: Mildly diminished, greater bases, appropriate effort, no rales, ronchi or wheezing. Heart: Mildly tachycardic with rhythm; no gallop, rub audible. Abdomen: Soft, NTTP, ND, mildly hyperactive BS. Extremities: No cyanosis, clubbing, or edema. Neurological: Patient awake, alert, oriented as noted, cognitive function intact; pupils equally reactive to light and accommodation, cranial nerves gross normal, moving all 4 extremities, no focal deficits, strength moderately to severely globally decreased secondary to acute presentation. Psychiatric: Affect appears anxious, distressed, does have underlying anxiety and depression, suspect likely anxiety is poorly controlled, no SI. Assessment & Plan Assessment/Plan (1) Cervical myelopathy with cervical radiculopathy: PLAN: Plan The patient is a 34 y/o F w/ PMHx: RLS, Anxiety and Depression, Chronic migraines, Chronic tobacco snuff usage, Chronic neck pain with C3-6 disc degeneration, stenosis, radiculomyelopathy who presents to the [facility] on 11/20/2024 secondary to persistent neck discomfort and pain for planned C3-[address] Ortiz. #1. Persistent neck pain with cervical myelopathy/cervical radiculopathy: Failed conservative therapies and treatments, admitted per Dr. Ortiz, status post C3-6 ACDF, post-operative pain management will be adjusted given significant intractable pain in the PACU and inconsolability to transition from hydrocodone to oxycodone, continued morphine as needed as well as as needed Toradol per surgery discretion, Tylenol scheduled per surgery discretion in addition to planned low-dose 100 mg 3 times daily gabapentin which may also help with patient anxiety temporarily as well, bowel regimen, DVT Prophylaxis, PT/OT/CM per Orthopedic surgery discretion. #2. Anxiety and depression, uncontrolled: Continue patient home sertraline home regimen although did discuss with her that this may need to be increased at a later date given severity of her anxiety, previously in the past had been on Xanax, she has not taken it for some time but does report occasionally having a beer to help with her anxiety thus discussed the dangers of this pathway as well. Strongly encouraged follow-up with her primary care physician at discharge to consider increasing the sertraline. Recommended also counseling/evaluation. Will at this time given severity of anxiety have low- dose oral Ativan for severe breakthrough anxiety but as noted above #1 adding gabapentin for pain which may also help in some part for her anxiety. #3. Tobacco Abuse: Encouraged cessation, inpatient consultation per RT, NR if desired. #4. Chronic migraines: Per current home list not on any regimen, may use as needed agents if necessary. #5. Restless leg syndrome: Per current list on a regimen, if notable issue may add low-dose Mirapex if needed. #6. DVT prophylaxis: SCDs, chemoprophylaxis per surgery discretion given recent OR. Charges/Coding Visit Charges Inpatient E&M: 02575 [facility] Hosp L3
--- NOTE | 2024-11-20 16:13 | POSTOPAN2_ITS ---
Anesthesia Postop Eval I Sum Postop Eval Completion status Anesthesia document: Postop Eval 1 completed: Yes Anesthesia Postop Eval I Summary Anesthesia Postop Eval I Summary: Anesthesia Postop Eval I: Assessment Summary Airway patent Yes 11/20/24 15:21 ELECTRICIAN [email or web address].[email or web address] Spontaneous unlabored Yes 11/20/24 15:21 ELECTRICIAN POWERHOUSE.JOSESITOOBCarito respirations Mental status Awake,Calm 11/20/24 15:21 ELECTRICIAN POWERHOUSE.[email or web address] nausea No 11/20/24 15:21 ELECTRICIAN POWERHOUSE.[email or web address] Vomiting No 11/20/24 15:21 ELECTRICIAN POWERHOUSE.[email or web address] Anesthesia Postop Eval I: Fluid Summary Crystalloid volume administer 1,150 11/20/24 15:21 ELECTRICIAN POWERHOUSE.[email or web address] (ml) Colloids volume administered ( ml) Blood Product volume administered (ml) Total IV fluid infused 1,150 11/20/24 15:21 ELECTRICIAN POWERHOUSE.JOSESITOOBCarito Anesthesia Postop Eval I: Summary Notes Anesthesia Complication No 11/20/24 15:21 ELECTRICIAN POWERHOUSE.JOSESITOOBCarito Anesthesia Complication Comment: Post-operative progress note Anesthesia: Postop Eval II Evaluation Mental status: Awake and Apprehensive Pain Level: 4 nausea: No Vomiting: No
--- NOTE | 2024-11-20 16:13 | PCM.POSTANE2 ---
Anesthesia Postop Eval I Sum Postop Eval Completion status Anesthesia document: Postop Eval 1 completed: Yes Anesthesia Postop Eval I Summary Anesthesia Postop Eval I Summary: Anesthesia Postop Eval I: Assessment Summary Airway patent Yes 11/20/24 15:21 FLIGHT OPERATION COORDINATOR.[email or web address] Spontaneous unlabored Yes 11/20/24 15:21 FLIGHT OPERATION COORDINATOR.JOSESITOOBCarito respirations Mental status Awake,Calm 11/20/24 15:21 FLIGHT OPERATION COORDINATOR.[email or web address] nausea No 11/20/24 15:21 FLIGHT OPERATION COORDINATOR.SKOBY Vomiting No 11/20/24 15:21 FLIGHT OPERATION COORDINATOR.[email or web address] Anesthesia Postop Eval I: Fluid Summary Crystalloid volume administer 1,150 11/20/24 15:21 FLIGHT OPERATION COORDINATOR.SKOBY (ml) Colloids volume administered ( ml) Blood Product volume administered (ml) Total IV fluid infused 1,150 11/20/24 15:21 FLIGHT OPERATION COORDINATOR.JOSESITOOBCarito Anesthesia Postop Eval I: Summary Notes Anesthesia Complication No 11/20/24 15:21 FLIGHT OPERATION COORDINATOR.JOSESITOOBCarito Anesthesia Complication Comment: Post-operative progress note Anesthesia: Postop Eval II Evaluation Mental status: Awake and Apprehensive Pain Level: 4 nausea: No Vomiting: No
[2024-11-20] MEDS: Gabapentin 100 MG Capsule PO (17:33)
[2024-11-20] MEDS: Ketorolac 15 MG/ML Vial IV (17:33)
[2024-11-20] MEDS: 0.9% Saline Lock 10 ML Syringe IV ×3 (17:33→20:57)
[2024-11-20] MEDS: Ondansetron 4 MG/2 ML Vial IV (18:49)
[2024-11-20] MEDS: Methocarbamol 500 MG Tablet 1000 MG PO ×2 (18:50→21:10)
[2024-11-20] MEDS: dexAMETHasone 4 MG/ML Vial IV (18:50)
[2024-11-20] MEDS: oxyCODONE 5 MG Tablet PO (18:50)
[2024-11-20] MEDS: Senna/Docusate Sodium 1 Tablet 2 TABLET PO (21:10)
[2024-11-21] MEDS: 0.9% Saline Lock 10 ML Syringe IV ×6 (00:01→12:32)
[2024-11-21] MEDS: dexAMETHasone 4 MG/ML Vial IV ×3 (00:01→12:32)
[2024-11-21] MEDS: Ketorolac 15 MG/ML Vial IV ×2 (00:07→06:21)
--- NOTE | 2024-11-21 00:14 | NURSING ---
pt walked in the de souza. tolerated well
[2024-11-21] MEDS: Cefazolin 2 GM in Syringe 10 ML IV (04:30)
[2024-11-21 06:08] VITALS: BP 114/74; PULSE 95; RESP 16; TEMP 36.9; O2SAT 95
[2024-11-21 06:20] LABS: Hematocrit 36.1 % (37-47); Hemoglobin 12.7 g/dL (12.0-15.0); Mean Corp Hgb Conc 35.2 g/dL (32-36); Mean Corpuscular Hgb 30.5 pg (27.0-32.0); Mean Corpuscular Volume 86.8 fL (81-99); Mean Platelet Vol. 8.9 fl (6.2-12.0); Platelet Count 386 K/mm3 (150-450); RBC Distribution Width SD 38.4 fl (35.1-43.9); Red Blood Count 4.16 M/mm3 (4.2-5.4); White Blood Count 23.4 K/mm3 (4.4-11.0)
[2024-11-21 06:33] LABS: Anion Gap 12 (5-15); BUN 5 mg/dL (4-19); BUN/Creat Ratio 6.2 RATIO (10-20); Calcium,Total 8.9 mg/dL (7.6-11.0); Carbon Dioxide 20.4 mmol/L (21.0-32.0); Chloride 103 mmol/L (98-108); Creatinine, Serum 0.72 mg/dL (0.70-1.20); EST Glomerular Filtration Rate 113 (>60); Estimated Creatinine Clearance 79.83 ml/min (50-250); Glucose 151 mg/dL (70-99); Sodium Level 136 mmol/L (133-145)
[2024-11-21 06:51] VITALS: O2SAT 99
--- NOTE | 2024-11-21 07:00 | RAD_ITS ---
PROCEDURE: CERV SPINE 2 OR 3 VIEWS 11/21/2024 REASON FOR EXAM: S/P CERVICAL FUSION TECHNIQUE: 2 views of the cervical spine. FINDINGS: Status post anterior cervical disc fusion with intervertebral disc spacers C3 through C6 appears intact and anatomic. No fracture or malalignment. Soft tissue air, left-sided [place] drain, safety pin and cervical collar appears as expected. Visualized upper lungs appear within limits. RAD/Cerv Spine 2 or 3 Views IMPRESSION: Status post anterior cervical disc fusion with intervertebral disc spacers C3 t hrough C6 appears intact and anatomic. No fracture or malalignment. Reading Location: [id number]
--- NOTE | 2024-11-21 07:24 | PN.HOSP_ITS ---
Reason for Visit Reason for Visit: Diagnoses Disease of spinal cord, unspecified (11/20/24) Radiculopathy, cervical region (11/20/24) Encounter for other preprocedural examination (11/20/24) Subjective Subjective Patient is a 34-year-old female who underwent C3-6 ACDF on 11/20/[address] Dmitriy Ortiz on account of C3-6 disc degeneration, stenosis, radiculomyelopathy. Hospitalist service consulted to assist with management of patient medical comorbidities Objective Data Objective Data Vital Signs: Vital Signs Temp Pulse Resp BP Pulse Ox O2 Del Method O2 Flow Rate 98.5 F 95 16 114/74 95 Room Air 4 11/21/24 06:08 11/21/24 06:08 11/21/24 06:08 11/21/24 06:08 11/21/24 06:08 11/21/24 06:08 11/20/24 16:35 Oxygen Flow Rate (L/min) 4 Oxygen Delivery Method Room Air Weight: 48 kg Body Mass Index (BMI) 20.6 Intake & Output: Intake and Output for Last 24 Hours 11/19/24 11/20/24 11/21/24 23:59 23:59 23:59 Intake Total 2877.75 / 2877.75 420 / 420 Output Total 200 / 200 Balance 2677.75 / 2677.75 420 / 420 Lab / Micro Data 11/21/24 05:30 11/21/24 05:30 Labs: Laboratory Results - last 24 hr 11/20/24 10:10: Urine Test Negative 11/20/24 10:15: Blood Type A POSITIVE, Antibody Screen NEGATIVE 11/20/24 10:33: POC Glucose 86 11/21/24 05:30: WBC 23.4 H, RBC 4.16 L, Hgb 12.7, Hct 36.1 L, MCV 86.8, MCH 30.5, MCHC 35.2, RDW Std Deviation 38.4, RDW Coeff of Blaze 12.0, Plt Count 386, MPV 8.9, Sodium 136, Potassium 4.0, Chloride 103, Carbon Dioxide 20.4 L, Anion Gap 12, BUN 5, Creatinine 0.72, Estim Creat Clear Calc 79.83, Est GFR (MDRD) Non-Af 113, BUN/Creatinine Ratio 6.2 L, Glucose 151 H, Calcium 8.9 Micro: Microbiology 10/24/24 12:52 Swab (Method) Nasal Screen MRSA/MSSA - Final Radiography Diagnostic Testing: Radiology Impression Cervical Spine X-Ray 11/20/24 11:00 IMPRESSION: Uncomplicated intraoperative images of C3-C6 anterior fusion. Reading Location: [facility] Cervical Spine X-Ray 11/21/24 07:00 IMPRESSION: Status post anterior cervical disc fusion with intervertebral disc spacers C3 through C6 appears intact and anatomic. No fracture or malalignment. Reading Location: [facility] Physical Exam Narrative GENERAL: cooperative HEENT: Atraumatic; normocephalic EYES; Anicteric, Normal Conjunctiva NECK; supple, normal thyroid, RESPIRATORY: Diminished to auscultation CARDIOVASCULAR: Regular S1 S2, GI: soft, normoactive bowel sounds, : No Renal angle tenderness; EXTREMITIES: No edema, no clubbing, MUSCULOSKELETAL: no muscle wasting NEURO: Awake; no lateralizing signs. SKIN: No Rash PSYCH; Flat affect Assessment & Plan Assessment/Plan (1) Status post cervical spinal fusion: PLAN: Plan Patient is a 34-year-old female who underwent C3-6 ACDF on 11/20/[address] Dmitriy Ortiz on account of C3-6 disc degeneration, stenosis, radiculomyelopathy. Hospitalist service consulted to assist with management of patient medical comorbidities 1. Status post C3-6 ACDF on 11/20/[address] Dmitriy Ortiz on account of C3-6 disc degeneration, stenosis, radiculomyelopathy. Patient postoperative orders regarding PT OT, pain management DVT prophylaxis deferred to primary service 2. Depression with anxiety ? Patient is on sertraline 3. Tobacco dependence ? Patient uses nicotine grams 4. Elevated WBC count ? No evidence of an infectious etiology will continue with monitoring may be stress related following patient surgical intervention 5. DVT prophylaxis ? Defer to primary service Time spent in the patient's overall evaluation,decision-making process, review of diagnostic data, adjustment of management, discussion with other providers, nursing nursing and ancillary staff involved in patient's care documentation, 36 Minutes Charges/Coding Visit Charges Inpatient E&M: 24210 Subs Hosp L2
[2024-11-21 08:15] VITALS: BP 118/60; PULSE 118; RESP 18; TEMP 36.6; O2SAT 97
[2024-11-21] MEDS: oxyCODONE 5 MG Tablet PO (08:19)
[2024-11-21] MEDS: Senna/Docusate Sodium 1 Tablet 2 TABLET PO (08:20)
[2024-11-21] MEDS: Methocarbamol 500 MG Tablet 1000 MG PO (08:20)
[2024-11-21] MEDS: Ondansetron 4 MG/2 ML Vial IV (08:20)
[2024-11-21] MEDS: Meloxicam 15 MG Tablet PO (08:20)
[2024-11-21] MEDS: Gabapentin 100 MG Capsule PO ×2 (08:20→12:32)
--- NOTE | 2024-11-21 12:42 | CASEMGMT ---
GAGE LINK Assessment: Face to Face with pt for initial transition planning/care coordination assessment. GAGE LINK introduced self and role at [facility], pt voices understanding and consents to assessment. Pt is A&O x4 and answers all questions appropriately at this time. Pt sitting up in bed in no distress with at bedside. Care providers, pharmacy, and demographics verified/updated. Admitting Dx: S/P cervical fusion Strata Score: 1 PCP:Saleem Specialists:billie Ortiz Pharmacy: [facility] Retail Insurance: [employer] Prescription Benefit: yes LNOK: Dillon Corea, ; Clara Hogan, mother Living Arrangements: Pt lives with and 2 kids in a two story home with 3 steps to enter with a rail. Pt reports prior to surgery, she was indep in ADL/IADLs. Pt denies concerns at home. Transportation: Pt drives self and denies concerns with transportation. Pt will transport her to medical appts until she can drive again. DME:[facility] HHC/SNF: Denies hx of Pt states no concerns with going home at time of dc. Pt cleared by PT. Pt states no further concerns/needs. CM to follow. Advised pt to ask CM if any further questions/concerns/needs arise, voices understanding. Pt Goal:Home Plan: Home Ganesh ALMONTE CM
[2024-11-21 13:45] VITALS: BP 117/68; PULSE 120; RESP 18; TEMP 36.9; O2SAT 100
--- NOTE | 2024-11-21 14:15 | PHA.DC_ITS ---
Pharmacy [facility] Pharm[facility] Service has performed discharge medication reconciliation and counseling for this patient. The patient's discharge medication list was reviewed for discrepancies and discrepancies were resolved. The patient was counseled on the following discharge medications and changes in medications for homegoing were reviewed. 1. ROBAXIN 2. NORCO 3. MOBIC 4. SENNA-S The Reason for Use, instructions for use, and potential side effects were reviewed for all new medications. The patient's questions regarding all of their medications were answered. The patient was able to verbally demonstrate an understanding of their discharge medications. Medications at Discharge Home Medications sertraline 100 mg tablet (Zoloft) 100 mg PO DAILY #30 tabs 03/26/21 hydrocodone-acetaminophen 5-325mg 5mg-325mg 1 tab PO Q6H PRN pain 7 days #28 tabs 11/21/24 meloxicam 15 mg tablet 15 mg PO DAILY #30 tabs 11/21/24 methocarbamol 500 mg tablet 750 mg (1.5 x 500 mg) PO TID PRN pain/spasms #60 tabs 11/21/24 sennosides 8.6 mg-docusate sodium 50 mg tablet (Stimulant Laxative Plus) 2 tab PO BID PRN constipation #30 tabs 11/21/24
--- NOTE | 2024-11-21 15:51 | PCM.PN.ORT ---
Subjective Subjective Postop day 1 C3-6 ACDF. Patient says that she has noticed a sore throat today and has been eating soft solid foods as tolerated. Patient says that she has been up with therapy and has been to the bathroom and has walked with no issue. No dressing changes were needed. Her pain has been well-tolerated. Seen with Dr. Ortiz. Objective Data Objective Data Vital Signs: Vital Signs Temp Pulse Resp BP Pulse Ox O2 Del Method O2 Flow Rate 98.4 F 120 H 18 117/68 100 Room Air 4 11/21/24 13:45 11/21/24 13:45 11/21/24 13:45 11/21/24 13:45 11/21/24 13:45 11/21/24 13:45 11/20/24 16:35 Oxygen Flow Rate (L/min) 4 Oxygen Delivery Method Room Air Weight: 105 lb 13.15 oz Body Mass Index (BMI) 20.6 Intake & Output: Intake and Output for Last 24 Hours 11/19/24 11/20/24 11/21/24 23:59 23:59 23:59 Intake Total 2877.75 / 2877.75 420 / 420 Output Total 200 / 200 Balance 2677.75 / 2677.75 420 / 420 Lab / Micro Data 11/21/24 05:30 11/21/24 05:30 Labs: Laboratory Results - last 24 hr 11/21/24 05:30: WBC 23.4 H, RBC 4.16 L, Hgb 12.7, Hct 36.1 L, MCV 86.8, MCH 30.5, MCHC 35.2, RDW Std Deviation 38.4, RDW Coeff of Blaze 12.0, Plt Count 386, MPV 8.9, Sodium 136, Potassium 4.0, Chloride 103, Carbon Dioxide 20.4 L, Anion Gap 12, BUN 5, Creatinine 0.72, Estim Creat Clear Calc 79.83, Est GFR (MDRD) Non-Af 113, BUN/Creatinine Ratio 6.2 L, Glucose 151 H, Calcium 8.9 Micro: Microbiology 10/24/24 12:52 Swab (Method) Nasal Screen MRSA/MSSA - Final Radiography Diagnostic Testing: Radiology Impression Cervical Spine X-Ray 11/21/24 07:00 IMPRESSION: Status post anterior cervical disc fusion with intervertebral disc spacers C3 through C6 appears intact and anatomic. No fracture or malalignment. 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 Drain removed today. Incision covered with tegaderm and gauze. Const alert, oriented x3 and no apparent distress Assessment & Plan Assessment/Plan (1) Status post cervical spinal fusion: PLAN: Plan Postop day 1 C3-6 ACDF. Obtained and reviewed x-rays today which show hardware and bone graft in good position. Patient is doing well postoperatively with her pain well-managed. Patient has walked with therapy who is cleared her for home discharge. Home meds include hydrocodone/acetaminophen, meloxicam, methocarbamol, senna. Reviewed restrictions of no bending, lifting, twisting. Reviewed the proper positioning of the cervical collar. Reviewed and educated on the use of the incentive spirometer. She will follow-up in 2 weeks in the clinic. Patient is in agreement.
== END 2024-11-21 14:00 | disposition home or self-care (01) ==
LOC: SDC 16:24 → MS3 16:24
PROVIDERS: Anesthesiology; Student in an Organized Health Care Education/Training Program; Admitting Provider Orthopaedic Surgery Orthopaedic Surgery of the Spine; PCP Physician Assistant; Referring Provider Orthopaedic Surgery Orthopaedic Surgery of the Spine; Visit Provider Internal Medicine
PROC: (CPT 22551; principal; 2024-11-20 11:30)
DX: M50.01 Cervical disc disorder with myelopathy, high cervical region (principal); G95.89 Other specified diseases of spinal cord; Q06.9 Congenital malformation of spinal cord, unspecified; M48.02 Spinal stenosis, cervical region; F32.A Depression, unspecified; F41.9 Anxiety disorder, unspecified; F17.220 Nicotine dependence, chewing tobacco, uncomplicated; Z79.891 Long term (current) use of opiate analgesic; Z79.899 Other long term (current) drug therapy; G25.81 Restless legs syndrome
CPT/HCPCS: 22551; 22552 ×2; 22846; 20931; 95940; 00670; 36415; 72040; 76000; 80048; 81025; 82962; 83735; 84702; 85025; 85027; 86703; 86706; 86708; 86803; 86850; 86900; 86901; 87081; 93005; 94668; 96374; 96375; 96376; 97162; 99221; C1713; A4216; G0378; J2405; J3475

== ENCOUNTER → 2025-01-08 | Outpatient (CLI) | payer OTHER, SELFPAY ==
[2025-01-08 13:11] LABS: hCG Titer Quant., Serum 657 mIU/mL (<9 non-preg)
== END | disposition home or self-care (01) ==
PROVIDERS: Nurse Practitioner Women's Health; PCP Physician Assistant; Referring Provider Obstetrics & Gynecology; Visit Provider Obstetrics & Gynecology
DX: O26.859 Spotting complicating pregnancy, unspecified trimester (principal); Z3A.00 Weeks of gestation of pregnancy not specified
CPT/HCPCS: 36415; 84702

== ENCOUNTER → 2025-01-10 | Outpatient (CLI) | payer OTHER, SELFPAY ==
[2025-01-10 10:14] LABS: hCG Titer Quant., Serum 378 mIU/mL (<9 non-preg)
== END | disposition home or self-care (01) ==
PROVIDERS: PCP Physician Assistant; Referring Provider Advanced Practice Midwife; Visit Provider Advanced Practice Midwife
DX: O26.859 Spotting complicating pregnancy, unspecified trimester (principal); Z3A.00 Weeks of gestation of pregnancy not specified
CPT/HCPCS: 36415; 84702

== ENCOUNTER 2025-01-17 14:38 | Outpatient (RCR) | payer OTHER, SELFPAY ==
[2025-01-17 18:07] LABS: hCG Titer Quant., Serum 202 mIU/mL (<9 non-preg)
[2025-01-22 13:33] LABS: hCG Titer Quant., Serum 72 mIU/mL (<9 non-preg)
== END 2025-02-03 23:59 ==
LOC: BWCLAB 14:38
PROVIDERS: Obstetrics & Gynecology; PCP Physician Assistant; Referring Provider Obstetrics & Gynecology; Visit Provider Obstetrics & Gynecology
DX: O03.9 Complete or unspecified spontaneous abortion without complication (principal)
CPT/HCPCS: 36415; 84702

== ENCOUNTER → 2025-01-20 | Outpatient (CLI) | payer OTHER, SELFPAY ==
--- NOTE | 2025-01-20 10:39 | US_ITS ---
PROCEDURE: TRANSVAGINAL NON- 01/20/2025 REASON FOR EXAM: R/O RETAINED PRODUCT OF CONCEPTION TECHNIQUE: TRANSVAGINAL NON- COMPARISON: None FINDINGS: Uterus is anteverted and measures 8.1 x 5.3 x 3.4 cm. No discrete fibroids are noted. No intrauterine gestational sac is noted. No definite evidence of retained product of conception. Endometrium is hyperechoic and measures 9 mm. Cervix is within normal limits. Right ovary measures 2.5 x 1.8 x 1.9 cm. Left ovary measures 7.9 x 7.9 x 4.7 cm. Normal vascular flow is noted within bilateral ovaries. There is a 7.2 x 6.4 x 4.3 cm cyst within the left ovary. Mild fluid is noted within the cul-de-sac. US/Transvaginal Non- IMPRESSION: No sonographic evidence of retained product of conception. 7.2 cm cyst within the left ovary. No acute ovarian torsion. Reading Location: [id number]
== END | disposition home or self-care (01) ==
LOC: US 10:39
PROVIDERS: PCP Physician Assistant; Referring Provider Obstetrics & Gynecology; Visit Provider Obstetrics & Gynecology
DX: O03.9 Complete or unspecified spontaneous abortion without complication (principal)
CPT/HCPCS: 76830

== ENCOUNTER 2025-01-27 10:00 | Outpatient (RCR) | payer OTHER, SELFPAY ==
--- NOTE | 2024-12-09 11:25 | HP.PTEVAL_ITS ---
Patient's Visit Information Visit Information Visit Information: LANCE LOCKHART is a 34 year old F referred to Physical Therapy by Dr. Dmitriy Ortiz MD with a diagnosis of C/S fusion 11/20/24. Date of Evaluation: 12/09/24 Physical Therapist: Morteza Beebe, PT, ATC Visit Plan Frequency: 2-3x /Week Duration: 6-8 weeks Plan: STM to cervical spine paraspinals/UT/scalenes, B UE strengthening, scap stab ex's, UBE, and HEP Subjective Subjective: DOS: 11/20/24. Pt reports she had a cervical spine fusion C3-6 performed at that time. Pt reports she fractured her spine when she fell out of a side by side when the door opened up, resulting in her injury. Pt notes she had PT after that incident, but the pain in her spine and the radiculopathy in her UE's would not go away. Pt reports she is very happy to have had the surgery at this time. Pt reports she has no tinging or numbness in her UE's at this time. 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 Pt denies sleep difficulty at this time secondary to pain. Pt reports she still sleeps with her brace on at this time as she is a restless sleeper. Pt reports she is not limited with her IADL's at this time secondary to pain. 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 Pt currently rates her pain at 2/10, and notes her pain has not been higher than that. Pain Neck pain: Pain Intensity (Out of 10): 2 Pain Intensity Range: 2 Objective Objective: Neuro: B UE sensation is WNL to light touch. B bicipital reflex= 2/3 Palpation: Incision is still healing. No signs of infection at this time. Pt has Significant guarding throughout cervical spine. ROM: Pt is moderately to severely limited in all planes. MMT: L shoulder flex= 11, abd= 16, elbow flex= 11, elbow ext= 16 #F; R shoulder flex= 11, abd= 21, elbow flex= 16, elbow ext= 29 #F Balance/Special Test Scores Oswestry Neck Score: 14 Goals Goal 1:: Decrease cervical spine pain x 50% to aid with IADL's Goal Time Frame: 6-8 Weeks Goal 2:: Increase B UE strength x 5-10 #F to aid with return to work without limitation Goal Time Frame: 6-8 Weeks Goal 3:: Increase cervical spine ROM x 1 grade to aid with driving Goal Time Frame: 6-8 Weeks Goal 4:: I with HEP Goal Time Frame: 6-8 Weeks Rehabilitation Potential Physical Therapy Diagnosis: Pt has neck pain, limited ROM, and B UE weakness secondary to c/s fusion Rehabilitation Potential: Good Anticipated Interventions Patient/Client Instruction: Educate patient on: Condition and Plan of Care For the Purpose of:: To improve self management Therapeutic Exercise to Include: Strength training, Endurance training, Body mechanics, Postural training, Flexibilty training, Active ROM and Scapular Strength/Stabilization For the Purpose of:: To decrease pain, To increase ROM and To improve muscle performance and motor function Cryotherapy (ice pack, ice massage): Yes For the Purpose of:: To decrease pain Text: Thank you for the opportunity to evaluate your patient. For Medicare and Medicare HMO plans, please review the plan of care and approve it. It will need to be FAXED BACK to us at [phone] for Medicare purposes. For Medicare only, by signing this I certify the plan of care. Please let me know if there are questions or concerns regarding this plan of care. Physician Signature:_ Date:
--- NOTE | 2025-01-27 10:53 | HP.PTDCSUM ---
Discharge Summary D/C summary: It has been my pleasure to treat LANCE LOCKHART referred by Dr. Dmitriy Ortiz MD, with the diagnosis of C/S fusion 11/20/24 for a total of 8 visit(s). Discharge Date: Please see the following information for a summary of their discharge status. Subjective Subjective: I feel great. I am ready to continue on my own Pain Neck pain: Pain Intensity (Out of 10): 0 Overall Improvement % Improvement: 100 Objective Objective/Function: Neck pain is 0/10 Pt is still moderately limited with L side bend and rotation MMT: R shoulder flex= 15, abd= 29, elbow flex= 36, ext= 31 #F; L shoulder flex= 15, abd= 21, elbow flex= 39, ext= 31 #F Pt is I with HEP Goals Goal 1:: Decrease cervical spine pain x 50% to aid with IADL's Goal Progress: Goal Met Goal 2:: Increase B UE strength x 5-10 #F to aid with return to work without limitation Goal Progress: Goal Met Goal 3:: Increase cervical spine ROM x 1 grade to aid with driving Goal Progress: Progressing Goal 4:: I with HEP Goal Progress: Goal Met Plan Plan: Discharge to HEP D/C Information d/c sentence: If there are questions or concerns regarding this patient's physical therapy, please feel free to call me at [phone]. Thank you for the referral of this patient. Sincerely, Morteza Beebe, PT, ATC Balance/Gait/Functional tests Balance/Special Test Scores Oswestry Neck Score: 1 Improvement % Improvement: 100
== END 2025-01-27 19:00 | disposition home or self-care (01) ==
LOC: PT 10:00
PROVIDERS: PCP Physician Assistant; Referring Provider Orthopaedic Surgery Orthopaedic Surgery of the Spine; Visit Provider Orthopaedic Surgery Orthopaedic Surgery of the Spine
DX: Z98.1 Arthrodesis status (principal)
CPT/HCPCS: 97110; 97161; 97530

== ENCOUNTER 2025-01-28 10:04 | Outpatient (CLI) | payer OTHER, SELFPAY ==
[2025-01-28 11:18] LABS: hCG Titer Quant., Serum 20 mIU/mL (<9 non-preg)
[2025-02-01 19:08] LABS: Anti-Cardiolipin Ab, IgG, Qn < 9 GPL U/mL (0-14); Anti-Cardiolipin Ab, IgM, Qn < 9 MPL U/mL (0-12); Beta-2-Glycoprotein I IgA <9 (0-25); Beta-2-Glycoprotein I IgG <9 (0-20); Beta-2-Glycoprotein I IgM <9 (0-32); Dilute Prothrombin Time (dPT) 39.3 sec (0.0-47.6); Dilute Russell Viper Venom 38.6 sec (0.0-47.0); Interpretation Comment: (.); PTT-LA 34.4 sec (0.0-43.5); Thrombin Time 18.6 sec (0.0-23.0)
== END 2025-01-28 23:59 | disposition home or self-care (01) ==
LOC: BWCLAB 10:04
PROVIDERS: PCP Physician Assistant; Visit Provider Obstetrics & Gynecology
DX: O03.9 Complete or unspecified spontaneous abortion without complication (principal); N96 Recurrent pregnancy loss
CPT/HCPCS: 36415; 83036; 84443; 84702; 86146; 86147

== ENCOUNTER → 2025-03-03 | Outpatient (CLI) | payer OTHER, SELFPAY ==
--- NOTE | 2025-03-03 09:21 | US_ITS ---
PROCEDURE: TRANSVAGINAL NON- 03/03/2025 REASON FOR EXAM: FU L OVARIAN CYST TECHNIQUE: TRANSVAGINAL NON- COMPARISON: Prior study dated January 20, 2025. FINDINGS: Measurements: Uterus: 8.9 cm x 4.1 cm x 3.2 cm with a volume of 61.4 mL Endometrial Thickness: 4.6 mm Right Ovary: 3.4 cm x 2.7 cm x 1.7 cm with a volume of 8.22 mL. Left Ovary: 3.8 cm x 2.4 cm x 2.4 cm with a volume of 11.23 mL. Uterus: Normal size, myometrial echotexture, and contour. Endometrium: Unremarkable. Right ovary: Normal size and echotexture. Left ovary: There is a dominant follicle in the left ovary measuring 2 cm x 1.8 cm 1.6 cm. Other: No large pelvic mass identified. US/Transvaginal Non- IMPRESSION: 2 cm x 1.8 cm 1.6 cm dominant follicle in the left ovary. Reading Location: [id number]
== END | disposition home or self-care (01) ==
LOC: US 09:20
PROVIDERS: PCP Physician Assistant; Referring Provider Obstetrics & Gynecology; Visit Provider Obstetrics & Gynecology
DX: N83.202 Unspecified ovarian cyst, left side (principal)
CPT/HCPCS: 76830

== ENCOUNTER → 2025-08-04 | Outpatient (CLI) | payer OTHER, SELFPAY ==
[2025-08-05 20:08] LABS: Chlamydia By Nucleic Acid AMP Negative (Negative); Gonococcus By Nucleic Acid AMP Negative (Negative)
== END | disposition home or self-care (01) ==
LOC: LABSPEC 12:10
PROVIDERS: PCP Physician Assistant; Visit Provider Nurse Practitioner Women's Health
DX: O09.90 Supervision of high risk pregnancy, unspecified, unspecified trimester (principal); Z3A.00 Weeks of gestation of pregnancy not specified
CPT/HCPCS: 87086; 87491; 87591